=== PATIENT | female | born 1985 | race Caucasian/White ===

== ENCOUNTER → 2016-12-05 | Outpatient (CLI) | payer OTHER ==
[2015-09-25 09:25] VITALS: BP 137/86
[~2016-12-05] MED LIST: OXYC-323 PO
[2016-12-05 17:00] LABS: BASO # 0.1 x10^3/uL (0.0-0.2); BASO % 1 % (0-3); EOS % 2 % (0-3); HEMATOCRIT 38.3 % (36.0-47.0); HEMOGLOBIN 12.2 g/dL (12.0-15.5); LYMPH # 2.7 x10^3/uL (1.0-4.8); LYMPH % 23 % (24-48); MEAN CORPUSCULAR HEMOGLOBIN 27 pg (25-35); MEAN CORPUSCULAR HGB CONC 32 g/dL (31-37); MEAN CORPUSCULAR VOLUME 83 fL (79-100); MONO % 7 % (0-9); NEUT % 67 % (31-73); PLATELET COUNT 275 x10^3/uL (140-400); RED BLOOD COUNT 4.63 x10^6/uL (3.50-5.40); RED CELL DISTRIBUTION WIDTH 14.6 % (11.5-14.5)
[2016-12-05 17:43] LABS: FREE T4 0.95 ng/dL (0.76-1.46)
== END | disposition home or self-care (01) ==
LOC: LAB 16:40
PROVIDERS: ATTEND Obstetrics & Gynecology
DX: N93.9 Abnormal uterine and vaginal bleeding, unspecified (principal)
CPT/HCPCS: 36415; 83036; 84439; 84443; 85027

== ENCOUNTER → 2017-02-06 | Outpatient (CLI) | payer OTHER ==
[2015-09-25 09:25] VITALS: BP 137/86
[2017-02-06 16:24] LABS: BASO # 0.1 x10^3/uL (0.0-0.2); BASO % 1 % (0-3); EOS % 1 % (0-3); HEMATOCRIT 37.5 % (36.0-47.0); HEMOGLOBIN 12.3 g/dL (12.0-15.5); LYMPH % 23 % (24-48); MEAN CORPUSCULAR HEMOGLOBIN 28 pg (25-35); MEAN CORPUSCULAR HGB CONC 33 g/dL (31-37); MEAN CORPUSCULAR VOLUME 84 fL (79-100); MONO % 8 % (0-9); NEUT % 68 % (31-73); PLATELET COUNT 262 x10^3/uL (140-400); RED BLOOD COUNT 4.46 x10^6/uL (3.50-5.40); RED CELL DISTRIBUTION WIDTH 14.8 % (11.5-14.5); WHITE BLOOD COUNT 13.1 x10^3/uL (4.0-11.0)
[2017-02-07 06:17] LABS: RPR REFLEX Non Reactive (Non Reactive)
== END | disposition home or self-care (01) ==
LOC: LAB 15:58
PROVIDERS: ATTEND Obstetrics & Gynecology
DX: Z32.01 Encounter for pregnancy test, result positive (principal)
CPT/HCPCS: 36415; 85027; 86593; 86703; 86762; 86850; 86900; 86901; 87340; 87341

== ENCOUNTER → 2017-04-19 | Outpatient (CLI) | payer OTHER ==
[2015-09-25 09:25] VITALS: BP 137/86
--- NOTE | 2017-04-19 12:09 | KCIC ---
Examination: Obstetric ultrasound second trimester HISTORY: History of routine supervision of COMPARISON: None available FINDINGS: Single living intrauterine identified with heart rate of 144 bpm. movement is seen. Cardiac activity seen. 4 chamber heart seen. breathing could not be identified. 3 vessel CORD seen. CORD insertion visualized. Fluid in the bladder, stomach, kidneys, spine, brain: Seen position is variable. Cervical length 4.9 cm. Amniotic fluid is normal. Biparietal diameter measures 4.3 cm corresponding to 19 weeks and 0 days +/- 12 days. Head circumference measures 16.21 cm corresponding to 19 weeks 0 days +/- 10 days. Abdominal circumference measures 14.07 cm corresponding to 19 weeks and 3 days +/- 14 days. Femur length measures 3.03 cm corresponding to 19 weeks and 3 days +/- 13 days. Cephalic index 78.2 Head circumference to abdominal circumference ratio 1.15 Femur length to biparietal diameter 70.3. Femur length to head circumference 18.7. Femur length abdominal circumference 21.5. LMP 12/10/2016. Clinical age 18 weeks and 4 days with estimated date of delivery 09/16/2017. Ultrasound age is 19 weeks and 2 days with estimated date of delivery by ultrasound 09/11/2017. Estimated weight 288 g +/- 43 g. IMPRESSION: Single living intrauterine with heart rate of 144 bpm. Per this ultrasound , ultrasound age is 19 weeks and 2 days. Electronically signed by: Shakeel Thomas MD (04/19/2017 12:06 PM) [id number]
== END | disposition home or self-care (01) ==
LOC: KCIC US 10:42
PROVIDERS: ATTEND Obstetrics & Gynecology
DX: Z34.82 Encounter for supervision of other normal pregnancy, second trimester (principal); Z3A.19 19 weeks gestation of pregnancy
CPT/HCPCS: 76805

== ENCOUNTER 2017-09-13 20:02 | Inpatient (IN) | payer OTHER ==
[~2017-09-13] VITALS: Ht 175.3 cm; Wt 131.1 kg
[2017-09-13] MEDS ORDERED: BUTORPHANOL 2 MG/ML VIAL. IV PRN ×2 (20:15)
[2017-09-13] MEDS ORDERED: DINOPROSTONE 10 MG SUPP.VAG VG ONE (20:15)
[2017-09-13] MEDS ORDERED: OXYTOCIN 30 UNIT/500 ML PREMIX 500 ML IV PRN ×2 (20:15)
[2017-09-13] MEDS ORDERED: 0.9 % SODIUM CHLORIDE 10 ML DISP.SYRIN. IV PRN (20:15)
[2017-09-13] MEDS ORDERED: TERBUTALINE 1 MG/ML VIAL. SQ PRN (20:15)
[2017-09-13] MEDS ORDERED: LIDOCAINE 1% PF 30 ML VIAL. INJ PRN (20:15)
[2017-09-13] MEDS ORDERED: IBUPROFEN 600 MG TABLET. PO PRN (20:15)
[2017-09-13] MEDS: IV RINGERS,LACTATED 1000ML 1,000 ML IV SCH ×2 (20:37→20:41)
[2017-09-13 20:48] VITALS: BP 131/80
[2017-09-13 20:53] LABS: HEMATOCRIT 35.8 % (36.0-47.0); HEMOGLOBIN 11.5 g/dL (12.0-15.5); RED BLOOD COUNT 4.25 x10^6/uL (3.50-5.40); RED CELL DISTRIBUTION WIDTH 14.5 % (11.5-14.5); WHITE BLOOD COUNT 11.5 x10^3/uL (4.0-11.0)
[2017-09-13 20:55] LABS: BILIRUBIN,URINE NEGATIVE (NEG); GLUCOSE,URINE NEGATIVE (NEG); NITRITE,URINE NEGATIVE (NEG); PH,URINE 6.5; PROTEIN,URINE NEGATIVE (NEG-TRACE); UROBILINOGEN,URINE 0.2 mg/dL (0.2 mg/dL)
[2017-09-13 21:02] LABS: BACTERIA,URINE MANY /HPF (0-FEW); RBC,URINE OCC /HPF (0-2); SQUAMOUS EPITHELIAL CELL,UR MOD /LPF; WBC,URINE 20-40 /HPF (0-4)
[2017-09-14] MEDS: IV RINGERS,LACTATED 1000ML 1,000 ML IV SCH ×3 (06:00→14:05)
[2017-09-14] MEDS ORDERED: ONDANSETRON PF 4 MG/2 ML VIAL. IV PRN ×2 (07:45→11:15)
[2017-09-14] MEDS: fentaNYL PF VIAL 100 MCG/2 ML VIAL IV PRN ×2 (08:45→10:06)
[2017-09-14] MEDS ORDERED: ROPIVacaine 0.2% IN 0.9%NACL PF 40 MG/20 ML DISP.SYRIN. ONE (11:08)
[2017-09-14] MEDS ORDERED: L&D EPIDURAL CASSETTE 100 ML EP ONE (11:09)
[2017-09-14] MEDS ORDERED: IV RINGERS,LACTATED 1000ML 1,000 ML IV SCH (11:09)
[2017-09-14] MEDS ORDERED: ePHEDrine PF IN SALINE 50 MG/5 ML DISP.SYRIN IV PRN (11:15)
[2017-09-14] MEDS ORDERED: fentaNYL PF VIAL 100 MCG/2 ML VIAL EPI PRN (11:15)
[2017-09-14] MEDS ORDERED: NALOXONE 0.4 MG/ML VIAL. IV PRN (11:15)
[2017-09-14] MEDS: L&D EPIDURAL CASSETTE 100 ML EP PRN ×2 (11:37→17:50)
[2017-09-14] MEDS: ROPIVacaine 0.2% IN 0.9%NACL PF 40 MG/20 ML DISP.SYRIN. EPI PRN ×2 (11:38→18:23)
[2017-09-14] MEDS ORDERED: ceFAZolin 2GM PREMIX 2 GM/50 ML BAG IV ONE (12:00)
[2017-09-14] MEDS ORDERED: fentaNYL PF VIAL 100 MCG/2 ML VIAL ONE ×3 (18:24→23:18)
[2017-09-14] MEDS ORDERED: LIDOCAINE 2% PF Vial for OR 5 ML VIAL. ONE ×4 (18:24→23:16)
[2017-09-14] MEDS ORDERED: CITRIC ACID/SODIUM CITRATE 30 ML SOLUTION. ONE (21:47)
[2017-09-14] MEDS ORDERED: FAMOTIDINE 20 MG/2 ML VIAL ONE ×2 (22:14→23:16)
[2017-09-14] MEDS ORDERED: OXYTOCIN 10 UNIT/ML VIAL. ONE ×2 (22:14→23:31)
[2017-09-14] MEDS ORDERED: ONDANSETRON PF 4 MG/2 ML VIAL. ONE (22:14)
[2017-09-14] MEDS ORDERED: MORPHINE PF 5 MG/10 ML VIAL. ONE (23:18)
--- NOTE | 2017-09-14 23:45 | PDOC1 ---
OB - History Hx of Present Care: Good Care Ultrasounds: Normal mid trimester US Obstetrical Complications: None Medical Complications: None Past Family/Social History * Past Medical, Surgical, Family and Obstetric Histories reviewed from chart. Rubella: Immune RPR/VDRL: Negative GBS Status: Negative HBsAG: Negative OB - Chief Complaint & HPI Date of Admission: Date of Admission: Sep 13, 2017 at 20:02 Chief Complaint/History : 1 Para: 0 EGA: 39 Reason for admission: induction of labor Indication for induction: maternal discomfort Admission Nurse Assessment Rev: Yes Problems: OB - Admission Exam Physical Exam Vitals: VS - Last 72 Hours, by Label Date Time Temp Pulse Resp B/P (MAP) Pulse Ox O2 Delivery O2 Flow Rate FiO2 09/14/17 17:50 20 Room Air 09/14/17 10:06 20 Room Air 09/14/17 09:15 20 Room Air 09/14/17 08:45 18 Room Air 09/13/17 20:48 97.6 78 20 131/80 (97) Room Air 97.6 HEENT: Normal Heart: Regular Rate Lungs: Clear Abdomen: Gravid, Non tender, Soft Extremities: Edema Reflexes: Normal Cervical Dilatation: 1cm Effacement: 25% Station: -3 Membranes: Intact Heart Rate: Normal Accelerations: Accelerations Present Decelerations: No decelerations Contractions on Admission: None Text A: 39 wks IUP IOL secondary maternal discomforts P: Admit for IOL cervidil, then pitocin. KIRA LEONG Jr, MD Sep 14, 2017 23:45
--- NOTE | 2017-09-14 23:50 | PDOC4 ---
OB Operative Note PRE OP DIAGNOSIS: Other (FTP) POST OP DIAGNOSIS: Other (Same) OPERATION PERFORMED: L [facility] Surgeon Dr. Olivier Anesthesia: Regional (Epidural) Blood Loss 800 ml Specimen placenta and infant OB Findings: Position (Vertex), Sex (Male), (8/9), Weight (3860 Gram), Fluid (Meconium), Nuchal Cord (x1) Complications none Additional Remarks pt. KIRA Chan Jr, MD Sep 14, 2017 23:50
[2017-09-15] MEDS ORDERED: ZOLPIDEM 5 MG TABLET. PO PRN
[2017-09-15] MEDS ORDERED: SIMETHICONE 80 MG TAB.CHEW PO PRN
[2017-09-15] MEDS ORDERED: 0.9 % SODIUM CHLORIDE 10 ML DISP.SYRIN. IV PRN
[2017-09-15] MEDS ORDERED: MAG HYDROX/ALUMINUM HYD/SIMETH 30 ML ORAL.SUSP PO PRN
[2017-09-15] MEDS ORDERED: ONDANSETRON PF 4 MG/2 ML VIAL. IV PRN
[2017-09-15] MEDS ORDERED: OXYTOCIN 30 UNIT/500 ML PREMIX 500 ML IV PRN
[2017-09-15] MEDS ORDERED: diphenhydrAMINE ORAL ELIXIR 12.5 MG/5 ML ML PO PRN
[2017-09-15] MEDS: KETOROLAC 30 MG/ML INJ. IV PRN ×2 (01:51→09:11)
--- NOTE | 2017-09-15 01:56 | OP ---
DATE OF SURGERY: PREOPERATIVE DIAGNOSES: 1. 39 weeks intrauterine . 2. Failure to progress. POSTOPERATIVE DIAGNOSES: 1. 39 weeks intrauterine . 2. Failure to progress. PROCEDURE: Primary low transverse section. SURGEON: Kira Olivier M.D. ANESTHESIA: Epidural. ESTIMATED BLOOD LOSS: 800 mL. COMPLICATIONS: None. FINDINGS: Viable male , Apgars 8 and 9. Weight 3860 grams. Three-vessel cord placenta delivered manually intact. Nuchal cord x 1. COMPLICATIONS: None. SUMMARY: This 31-year-old 1 at 39 weeks' gestation who presented for induction of labor secondary to maternal discomforts of . The patient was brought Cervidil for cervical ripening. She had spontaneous rupture of membranes. She was then started on Pitocin augmentation. The patient dilated up to 8 cm and then failed to progress any further. The patient also had meconium stained amniotic fluid. She was counseled on risks, benefits and expectations of section and voiced clear understanding to proceed. DESCRIPTION OF PROCEDURE: The patient was taken to surgery suite and placed in dorsal supine position. She was prepped with ChloraPrep and draped in sterile fashion. After adequate anesthesia, a Pfannenstiel skin incision was made with scalpel down to and through the fascia. The fascia was extended laterally using curved Beckett scissors. Superior edge of the fascia was grasped with two Rola clamps and dissected free of the abdominal rectus muscles using blunt dissection along with Bovie cautery. The same process took place inferiorly. The abdominal rectus muscles were dissected at the midline. Peritoneum was grasped with 2 hemostats and entered sharply with Metzenbaum scissors. This incision was extended superiorly as well as inferiorly. The Rory ring retractor was placed. Low transverse hysterotomy incision was made with scalpel down to the . The hysterotomy incision was extended laterally and superiorly digitally. With the aid of fundal pressure, the 's head was delivered in a smooth atraumatic manner. With additional fundal pressure, the infant's shoulders, anterior shoulder and posterior shoulder delivered without any complication. Nuchal cord x 1 was visualized and reduced. The was suctioned with bulb syringe orally and nasally, umbilical cord was clamped twice and cut. A viable male was handed to awaiting nursing staff. Umbilical cord blood was then obtained. Three-vessel cord placenta was delivered manually intact. The uterus was then exteriorized and cleared of clot and debris with a moist lap. The hysterotomy incision was reapproximated using 1-0 Vicryl suture in running locked fashion. An imbricated layer of 1-0 Vicryl suture in a running fashion was performed for better hemostasis. [id number] suture was placed with 1-0 Vicryl suture in the left apex for better hemostasis as well. The uterus palpated firm, fallopian tubes and ovaries appeared normal bilaterally. Posterior cul-de-sac was cleared of clot and debris with moist lap. The uterus was then returned to the abdomen. Pericolic gutters were cleared of clot and debris with a moist lap. The hysterotomy incision was reviewed and was hemostatic. Interceed was placed over the hysterotomy incision in an inverted T fashion. The Rory ring retractor was removed. The peritoneum was reapproximated using 1-0 Vicryl suture in running fashion. Fascia was reapproximated using 0 Vicryl suture in running fashion. Skin was reapproximated using 4-0 Vicryl suture in subcuticular manner. Prevena wound VAC was then placed. The patient tolerated the procedure well and was taken to recovery room in stable condition. Sponge and needle count correct x 3. KIRA OLIVIER MD DR: JEFFRY/patricia JOB#: [id number] / [id number]
[2017-09-15 03:15] VITALS: BP 114/58
[2017-09-15 05:49] VITALS: BP 103/55
[2017-09-15 06:00] LABS: BASO % 0 % (0-3); EOS % 0 % (0-3); HEMOGLOBIN 9.4 g/dL (12.0-15.5); LYMPH # 1.6 x10^3/uL (1.0-4.8); LYMPH % 10 % (24-48); MEAN CORPUSCULAR HEMOGLOBIN 27 pg (25-35); MEAN CORPUSCULAR HGB CONC 32 g/dL (31-37); MEAN CORPUSCULAR VOLUME 84 fL (79-100); MONO % 7 % (0-9); NEUT % 83 % (31-73); PLATELET COUNT 181 x10^3/uL (140-400); RED BLOOD COUNT 3.44 x10^6/uL (3.50-5.40); RED CELL DISTRIBUTION WIDTH 14.7 % (11.5-14.5); WHITE BLOOD COUNT 16.4 x10^3/uL (4.0-11.0)
[2017-09-15] MEDS: IV RINGERS,LACTATED 1000ML 1,000 ML IV SCH (06:27)
[2017-09-15 15:10] VITALS: BP 114/63
[2017-09-15] MEDS: IBUPROFEN 800 MG TABLET. PO PRN (16:14)
[2017-09-15] MEDS: oxyCODONE/APAP 5/325 1 TAB TABLET PO PRN (20:34)
[2017-09-15 23:00] VITALS: BP 118/77
[2017-09-16] MEDS: IBUPROFEN 800 MG TABLET. PO PRN ×3 (02:03→17:50)
[2017-09-16] MEDS: oxyCODONE/APAP 5/325 1 TAB TABLET PO PRN (02:03)
[2017-09-16] MEDS ORDERED: DIPHTH,PERTUSS(ACELL),TET TOX 0.5 ML DISP.SYRIN. VAX IM ONE (07:00)
[2017-09-16] MEDS ORDERED: MEASLES, MUMPS & RUBELLA VACC 0.5 ML VIAL. VAX SQ ONE (07:00)
[2017-09-16] MEDS: FERROUS SULFATE 325 MG TABLET. PO SCH ×2 (09:56→17:50)
[2017-09-16] MEDS: DOCUSATE SODIUM 100 MG CAPSULE. PO PRN ×2 (09:56→17:50)
[2017-09-16 10:00] VITALS: BP 123/84
--- NOTE | 2017-09-16 14:58 | PDOC ---
OB Progress Note Date of Service 09/16/17 Time of Evaluation 1455 Notes Pt. feeling well. Pain controlled. Lochia minimal. Breast feeding without difficulty. Lab Laboratory Tests Test 09/15/17 05:45 White Blood Count 16.4 x10^3/uL (4.0-11.0) Red Blood Count 3.44 x10^6/uL (3.50-5.40) Hemoglobin 9.4 g/dL (12.0-15.5) Hematocrit 29.0 % (36.0-47.0) Mean Corpuscular Volume 84 fL (79-100) Mean Corpuscular Hemoglobin 27 pg (25-35) Mean Corpuscular Hemoglobin Concent 32 g/dL (31-37) Red Cell Distribution Width 14.7 % (11.5-14.5) Platelet Count 181 x10^3/uL (140-400) Neutrophils (%) (Auto) 83 % (31-73) Lymphocytes (%) (Auto) 10 % (24-48) Monocytes (%) (Auto) 7 % (0-9) Eosinophils (%) (Auto) 0 % (0-3) Basophils (%) (Auto) 0 % (0-3) Neutrophils # (Auto) 13.6 x10^3uL (1.8-7.7) Lymphocytes # (Auto) 1.6 x10^3/uL (1.0-4.8) Monocytes # (Auto) 1.2 x10^3/uL (0.0-1.1) Eosinophils # (Auto) 0.0 x10^3/uL (0.0-0.7) Basophils # (Auto) 0.0 x10^3/uL (0.0-0.2) Medications Current Medications Sodium Chloride (Normal Saline Flush) 3 ml QSHIFT PRN IV AFTER MEDS AND BLOOD DRAWS; Start 09/13/17 at 20:15 Ringer's Solution 1,000 ml @ 125 mls/hr Q8H IV Last administered on 09/15/17t 06:27; Start 09/13/17 at 20:03 Butorphanol Tartrate (Stadol) 1 mg PRN Q1HR PRN IV mild to moderate labor pain ; Start 09/13/17 at 20:15; Stop 09/15/17 at 04:03; Status DC Butorphanol Tartrate (Stadol) 2 mg PRN Q1HR PRN IV Severe labor pain; Start at 20:15; Stop 09/15/17 at 04:03; Status DC Fentanyl Citrate (Fentanyl 2ml Vial) 100 mcg PRN Q30MIN PRN IV Severe pain Last administered on 09/14/17 10:06; Start 09/13/17 at 20:15; Stop 09/15/17 at 04:03; Status DC Terbutaline Sulfate (Brethine) 0.25 mg 1X PRN PRN SQ SEE COMMENTS; Start at 20:15; Stop 09/14/17 at 20:14; Status DC Lidocaine HCl 30 ml 1X PRN PRN INJ SEE COMMENTS; Start 09/13/17 at 20:15; Stop 09/15/17 at 04:03; Status DC Oxytocin/Sodium Chloride 500 ml @ 0 mls/hr CONT PRN IV SEE I/O RECORD Last administered on 09/14/17 06:01; Start 09/13/17 at 20:15; Stop 09/15/17 at 04:03 ; Status DC Oxytocin/Sodium Chloride 500 ml @ 0 mls/hr CONT PRN PRN IV Post delivery bleeding; Start 09/13/17 at 20:15 Ibuprofen (Motrin) 600 mg PRN Q6HRS PRN PO PAIN; Start 09/13/17 at 20:15; Stop 09/15/17 at 11:34; Status DC Dinoprostone (Cervidil) 10 mg 1X ONCE VG Last administered on 09/13/17 20:37 ; Start 09/13/17 at 20:15; Stop 09/13/17 at 20:21; Status DC Ondansetron HCl (Zofran) 4 mg PRN Q6HRS PRN IV NAUSEA/VOMITING 1ST CHOICE Last administered on 09/14/17 08:04; Start 09/14/17 at 07:45; Stop 09/15/17 at 04:03 ; Status DC Ropivacaine/ Sodium Chloride 40 mg STK-MED ONCE .ROUTE ; Start 09/14/17 at 11:08 ; Stop 09/15/17 at 04:03; Status DC Ropivacaine/ Fentanyl/NS 100 ml @ As Directed STK-MED ONCE EP ; Start 09/14/17 at 11:09; Stop 09/15/17 at 04:03; Status DC Ringer's Solution 1,000 ml @ 1,000 mls/hr Q1H IV Last administered on 21:40; Start 09/14/17 at 11:09; Stop 09/14/17 at 12:08; Status DC Ephedrine Sulfate (ePHEDrine PF IN SALINE SYRINGE) 10 mg PRN Q2MIN PRN IV IF SBP<90; Start 09/14/17 at 11:15; Stop 09/15/17 at 04:03; Status DC Naloxone HCl (Narcan) 0.4 mg PRN Q1MIN PRN IV SEE COMMENTS; Start 09/14/17 at 11:15; Stop 09/15/17 at 04:03; Status DC Fentanyl Citrate (Fentanyl 2ml Vial) 100 mcg PRN 1X PRN EPI FOR ANESTHESIA Last administered on 09/14/17 11:36; Start 09/14/17 at 11:15; Stop 09/15/17 at 04:03; Status DC Ropivacaine/ Fentanyl/NS 100 ml @ 14 mls/hr CONT PRN EP PAIN Last administered on 09/14/17 17:50; Start 09/14/17 at 11:15; Stop 09/15/17 at 04:03 ; Status DC Ondansetron HCl (Zofran) 4 mg PRN Q6HRS PRN IV NAUSEA/VOMITING; Start 09/14/17 at 11:15; Stop 09/15/17 at 04:03; Status DC Ropivacaine/ Sodium Chloride 40 mg PRN 1X PRN EPI SEE COMMENTS Last administered on 09/14/17 18:23; Start 09/14/17 at 11:15; Stop 09/15/17 at 04:03 ; Status DC Lidocaine HCl (Lidocaine Pf 2% Vial) 5 ml STK-MED ONCE .ROUTE ; Start 09/14/17 at 18:24; Stop 09/15/17 at 04:03; Status DC Fentanyl Citrate (Fentanyl 2ml Vial) 100 mcg STK-MED ONCE .ROUTE ; Start at 18:24; Stop 09/15/17 at 04:03; Status DC Lidocaine HCl (Lidocaine Pf 2% Vial) 5 ml STK-MED ONCE .ROUTE ; Start 09/14/17 at 21:06; Stop 09/15/17 at 04:03; Status DC Cefazolin Sodium/ Dextrose 50 ml @ 100 mls/hr 1X ONCE IV ; Start 09/14/17 at 22:00; Stop 09/15/17 at 04:03; Status DC Citric Acid/ Sodium Citrate (Bicitra) 30 ml STK-MED ONCE .ROUTE ; Start at 21:47; Stop 09/15/17 at 04:03; Status DC Famotidine (Pepcid Vial) 20 mg STK-MED ONCE .ROUTE ; Start 09/14/17 at 22:14; Stop 09/15/17 at 04:03; Status DC Lidocaine HCl (Lidocaine Pf 2% Vial) 5 ml STK-MED ONCE .ROUTE ; Start 09/14/17 at 22:14; Stop 09/15/17 at 04:03; Status DC Ondansetron HCl (Zofran) 4 mg STK-MED ONCE .ROUTE ; Start 09/14/17 at 22:14; Stop 09/15/17 at 04:03; Status DC Oxytocin (Pitocin) 10 unit STK-MED ONCE .ROUTE ; Start 09/14/17 at 22:14; Stop 09/15/17 at 04:03; Status DC Fentanyl Citrate (Fentanyl 2ml Vial) 100 mcg STK-MED ONCE .ROUTE ; Start at 22:41; Stop 09/15/17 at 04:03; Status DC Lidocaine HCl (Lidocaine Pf 2% Vial) 5 ml STK-MED ONCE .ROUTE ; Start 09/14/17 at 23:16; Stop 09/15/17 at 04:03; Status DC Famotidine (Pepcid Vial) 20 mg STK-MED ONCE .ROUTE ; Start 09/14/17 at 23:16; Stop 09/15/17 at 04:03; Status DC Morphine Sulfate (Morphine Preservative Free) 5 mg STK-MED ONCE .ROUTE ; Start 09/14/17 at 23:18; Stop 09/15/17 at 04:03; Status DC Fentanyl Citrate (Fentanyl 2ml Vial) 100 mcg STK-MED ONCE .ROUTE ; Start at 23:18; Stop 09/14/17 at 23:19; Status DC Oxytocin (Pitocin) 10 unit STK-MED ONCE .ROUTE ; Start 09/14/17 at 23:31; Stop 09/15/17 at 04:03; Status DC Sodium Chloride (Normal Saline Flush) 3 ml QSHIFT PRN IV AFTER MEDS AND BLOOD DRAWS; Start 09/15/17 at 00:00; Stop 09/15/17 at 04:03; Status DC Oxytocin/Sodium Chloride 500 ml @ 125 mls/hr CONT PRN IV EXCESSIVE POST- BLEEDING; Start 09/15/17 at 00:00; Stop 09/15/17 at 04:03; Status DC Ibuprofen (Motrin) 800 mg PRN Q8HRS PRN PO INFLAMMATION Last administered on 09:56; Start 09/15/17 at 00:00 Ondansetron HCl (Zofran) 4 mg PRN Q6HRS PRN IV NAUSEA/VOMITING; Start 09/15/17 at 00:00 Docusate Sodium (Colace) 100 mg PRN BID PRN PO CONSTIPATION Last administered on 09/16/17 09:56; Start 09/15/17 at 00:00 Al Hydroxide/Mg Hydroxide (Mylanta Plus Xs) 30 ml PRN Q4HRS PRN PO HEARTBURN / GAS; Start 09/15/17 at 00:00; Stop 09/15/17 at 04:03; Status DC Simethicone (Gas-X) 80 mg PRN AFTMEALHC PRN PO GAS / BLOATING; Start 09/15/17 at 00:00 Diphenhydramine HCl (Benadryl Oral Elixir) 12.5 mg PRN Q6HRS PRN PO ITCHING; Start 09/15/17 at 00:00 Ferrous Sulfate (Feosol) 325 mg BIDWMEALS PO Last administered on 09/16/17 09: 56; Start 09/15/17 at 08:00 Zolpidem Tartrate (Ambien) 5 mg PRN QHS PRN PO INSOMNIA, MAY REPEAT X1; Start 09/15/17 at 00:00 Oxycodone/ Acetaminophen (Percocet 5/325) 2 tab PRN Q4HRS PRN PO MODERATE PAIN , SEVERE PAIN Last administered on 09/16/17 02:03; Start 09/15/17 at 00:00 Ketorolac Tromethamine (Toradol) 30 mg PRN Q6HRS PRN IV MODERATE PAIN Last administered on 12/8/17at 09:11; Start 09/15/17 at 00:00; Stop 09/19/17 at 23: 59 Cefazolin Sodium/ Dextrose (Ancef 2gm Premix) 2 gm STK-MED ONCE IV ; Start 09/14 at 12:00; Stop 09/15/17 at 08:23; Status DC Measles/Mumps/ Rubella Vaccine Live (M-M-R Ii Vaccine With Diluent) 0.5 ml ONCE ONCE VAX SQ ; Start 09/16/17 at 07:00; Stop 09/16/17 at 07:01; Status DC Diphtheria/ Tetanus/Acell Pertussis (Boostrix) 0.5 ml ONCE ONCE VAX IM ; Start 09/16/17 at 07:00; Stop 09/16/17 at 07:01; Status DC Active Scripts Active Reported Percocet 5-325 Mg Tablet (Oxycodone/Acetaminophen) 1 Each Tablet 1 Tab PO Q4HRS W/A PRN Exam Abd: soft, non tender, fundus firm Wound vac in place and dry. Assessment POD#2 s/p c/s Plan of Care: Continue current Tx, Mgmt KIRA LEONG Jr, MD Sep 16, 2017 14:57
[2017-09-16 17:59] VITALS: BP 118/79
[2017-09-16 23:03] VITALS: BP 135/75
[2017-09-17] MEDS: oxyCODONE/APAP 5/325 1 TAB TABLET PO PRN (00:10)
[2017-09-17 06:12] VITALS: BP 109/75
[2017-09-17] MEDS: DOCUSATE SODIUM 100 MG CAPSULE. PO PRN (08:31)
[2017-09-17] MEDS: FERROUS SULFATE 325 MG TABLET. PO SCH (08:31)
[2017-09-17] MEDS: IBUPROFEN 800 MG TABLET. PO PRN (08:32)
--- NOTE | 2017-09-17 12:12 | PDOC ---
OB Progress Note Date of Service 09/17/17 Time of Evaluation 1210 Notes Pt. feeling well. No complaints. Medications Current Medications Sodium Chloride (Normal Saline Flush) 3 ml QSHIFT PRN IV AFTER MEDS AND BLOOD DRAWS; Start 09/13/17 at 20:15 Ringer's Solution 1,000 ml @ 125 mls/hr Q8H IV Last administered on 09/15/17 06:27; Start 09/13/17 at 20:03 Butorphanol Tartrate (Stadol) 1 mg PRN Q1HR PRN IV mild to moderate labor pain ; Start 09/13/17 at 20:15; Stop 09/15/17 at 04:03; Status DC Butorphanol Tartrate (Stadol) 2 mg PRN Q1HR PRN IV Severe labor pain; Start at 20:15; Stop 09/15/17 at 04:03; Status DC Fentanyl Citrate (Fentanyl 2ml Vial) 100 mcg PRN Q30MIN PRN IV Severe pain Last administered on 09/14/17 10:06; Start 09/13/17 at 20:15; Stop 09/15/17 at 04:03; Status DC Terbutaline Sulfate (Brethine) 0.25 mg 1X PRN PRN SQ SEE COMMENTS; Start at 20:15; Stop 09/14/17 at 20:14; Status DC Lidocaine HCl 30 ml 1X PRN PRN INJ SEE COMMENTS; Start 09/13/17 at 20:15; Stop 09/15/17 at 04:03; Status DC Oxytocin/Sodium Chloride 500 ml @ 0 mls/hr CONT PRN IV SEE I/O RECORD Last administered on 09/14/17 06:01; Start 09/13/17 at 20:15; Stop 09/15/17 at 04:03 ; Status DC Oxytocin/Sodium Chloride 500 ml @ 0 mls/hr CONT PRN PRN IV Post delivery bleeding; Start 09/13/17 at 20:15 Ibuprofen (Motrin) 600 mg PRN Q6HRS PRN PO PAIN; Start 09/13/17 at 20:15; Stop 09/15/17 at 11:34; Status DC Dinoprostone (Cervidil) 10 mg 1X ONCE VG Last administered on 09/13/17 20:37 ; Start 09/13/17 at 20:15; Stop 09/13/17 at 20:21; Status DC Ondansetron HCl (Zofran) 4 mg PRN Q6HRS PRN IV NAUSEA/VOMITING 1ST CHOICE Last administered on 09/14/17 08:04; Start 09/14/17 at 07:45; Stop 09/15/17 at 04:03 ; Status DC Ropivacaine/ Sodium Chloride 40 mg STK-MED ONCE .ROUTE ; Start 09/14/17 at 11:08 ; Stop 09/15/17 at 04:03; Status DC Ropivacaine/ Fentanyl/NS 100 ml @ As Directed STK-MED ONCE EP ; Start 09/14/17 at 11:09; Stop 09/15/17 at 04:03; Status DC Ringer's Solution 1,000 ml @ 1,000 mls/hr Q1H IV Last administered on 21:40; Start 09/14/17 at 11:09; Stop 09/14/17 at 12:08; Status DC Ephedrine Sulfate (ePHEDrine PF IN SALINE SYRINGE) 10 mg PRN Q2MIN PRN IV IF SBP<90; Start 09/14/17 at 11:15; Stop 09/15/17 at 04:03; Status DC Naloxone HCl (Narcan) 0.4 mg PRN Q1MIN PRN IV SEE COMMENTS; Start 09/14/17 at 11:15; Stop 09/15/17 at 04:03; Status DC Fentanyl Citrate (Fentanyl 2ml Vial) 100 mcg PRN 1X PRN EPI FOR ANESTHESIA Last administered on 09/14/17 11:36; Start 09/14/17 at 11:15; Stop 09/15/17 at 04:03; Status DC Ropivacaine/ Fentanyl/NS 100 ml @ 14 mls/hr CONT PRN EP PAIN Last administered on 09/14/17 17:50; Start 09/14/17 at 11:15; Stop 09/15/17 at 04:03 ; Status DC Ondansetron HCl (Zofran) 4 mg PRN Q6HRS PRN IV NAUSEA/VOMITING; Start 09/14/17 at 11:15; Stop 09/15/17 at 04:03; Status DC Ropivacaine/ Sodium Chloride 40 mg PRN 1X PRN EPI SEE COMMENTS Last administered on 09/14/17 18:23; Start 09/14/17 at 11:15; Stop 09/15/17 at 04:03 ; Status DC Lidocaine HCl (Lidocaine Pf 2% Vial) 5 ml STK-MED ONCE .ROUTE ; Start 09/14/17 at 18:24; Stop 09/15/17 at 04:03; Status DC Fentanyl Citrate (Fentanyl 2ml Vial) 100 mcg STK-MED ONCE .ROUTE ; Start at 18:24; Stop 09/15/17 at 04:03; Status DC Lidocaine HCl (Lidocaine Pf 2% Vial) 5 ml STK-MED ONCE .ROUTE ; Start 09/14/17 at 21:06; Stop 09/15/17 at 04:03; Status DC Cefazolin Sodium/ Dextrose 50 ml @ 100 mls/hr 1X ONCE IV ; Start 09/14/17 at 22:00; Stop 09/15/17 at 04:03; Status DC Citric Acid/ Sodium Citrate (Bicitra) 30 ml STK-MED ONCE .ROUTE ; Start at 21:47; Stop 09/15/17 at 04:03; Status DC Famotidine (Pepcid Vial) 20 mg STK-MED ONCE .ROUTE ; Start 09/14/17 at 22:14; Stop 09/15/17 at 04:03; Status DC Lidocaine HCl (Lidocaine Pf 2% Vial) 5 ml STK-MED ONCE .ROUTE ; Start 09/14/17 at 22:14; Stop 09/15/17 at 04:03; Status DC Ondansetron HCl (Zofran) 4 mg STK-MED ONCE .ROUTE ; Start 09/14/17 at 22:14; Stop 09/15/17 at 04:03; Status DC Oxytocin (Pitocin) 10 unit STK-MED ONCE .ROUTE ; Start 09/14/17 at 22:14; Stop 09/15/17 at 04:03; Status DC Fentanyl Citrate (Fentanyl 2ml Vial) 100 mcg STK-MED ONCE .ROUTE ; Start at 22:41; Stop 09/15/17 at 04:03; Status DC Lidocaine HCl (Lidocaine Pf 2% Vial) 5 ml STK-MED ONCE .ROUTE ; Start 09/14/17 at 23:16; Stop 09/15/17 at 04:03; Status DC Famotidine (Pepcid Vial) 20 mg STK-MED ONCE .ROUTE ; Start 09/14/17 at 23:16; Stop 09/15/17 at 04:03; Status DC Morphine Sulfate (Morphine Preservative Free) 5 mg STK-MED ONCE .ROUTE ; Start 09/14/17 at 23:18; Stop 09/15/17 at 04:03; Status DC Fentanyl Citrate (Fentanyl 2ml Vial) 100 mcg STK-MED ONCE .ROUTE ; Start at 23:18; Stop 09/14/17 at 23:19; Status DC Oxytocin (Pitocin) 10 unit STK-MED ONCE .ROUTE ; Start 09/14/17 at 23:31; Stop 09/15/17 at 04:03; Status DC Sodium Chloride (Normal Saline Flush) 3 ml QSHIFT PRN IV AFTER MEDS AND BLOOD DRAWS; Start 09/15/17 at 00:00; Stop 09/15/17 at 04:03; Status DC Oxytocin/Sodium Chloride 500 ml @ 125 mls/hr CONT PRN IV EXCESSIVE POST- BLEEDING; Start 09/15/17 at 00:00; Stop 09/15/17 at 04:03; Status DC Ibuprofen (Motrin) 800 mg PRN Q8HRS PRN PO INFLAMMATION Last administered on 08:32; Start 09/15/17 at 00:00 Ondansetron HCl (Zofran) 4 mg PRN Q6HRS PRN IV NAUSEA/VOMITING; Start 09/15/17 at 00:00 Docusate Sodium (Colace) 100 mg PRN BID PRN PO CONSTIPATION Last administered on 09/17/17 08:31; Start 09/15/17 at 00:00 Al Hydroxide/Mg Hydroxide (Mylanta Plus Xs) 30 ml PRN Q4HRS PRN PO HEARTBURN / GAS; Start 09/15/17 at 00:00; Stop 09/15/17 at 04:03; Status DC Simethicone (Gas-X) 80 mg PRN AFTMEALHC PRN PO GAS / BLOATING; Start 09/15/17 at 00:00 Diphenhydramine HCl (Benadryl Oral Elixir) 12.5 mg PRN Q6HRS PRN PO ITCHING; Start 09/15/17 at 00:00 Ferrous Sulfate (Feosol) 325 mg BIDWMEALS PO Last administered on 09/17/17 08 :31; Start 09/15/17 at 08:00 Zolpidem Tartrate (Ambien) 5 mg PRN QHS PRN PO INSOMNIA, MAY REPEAT X1; Start 09/15/17 at 00:00 Oxycodone/ Acetaminophen (Percocet 5/325) 2 tab PRN Q4HRS PRN PO MODERATE PAIN , SEVERE PAIN Last administered on 09/17/17 00:10; Start 09/15/17 at 00:00 Ketorolac Tromethamine (Toradol) 30 mg PRN Q6HRS PRN IV MODERATE PAIN Last administered on 09/15/17 09:11; Start 09/15/17 at 00:00; Stop 09/19/17 at 23: 59 Cefazolin Sodium/ Dextrose (Ancef 2gm Premix) 2 gm STK-MED ONCE IV ; Start 09/14 at 12:00; Stop 09/15/17 at 08:23; Status DC Measles/Mumps/ Rubella Vaccine Live (M-M-R Ii Vaccine With Diluent) 0.5 ml ONCE ONCE VAX SQ ; Start 09/16/17 at 07:00; Stop 09/16/17 at 07:01; Status DC Diphtheria/ Tetanus/Acell Pertussis (Boostrix) 0.5 ml ONCE ONCE VAX IM ; Start 09/16/17 at 07:00; Stop 09/16/17 at 07:01; Status DC Active Scripts Active Reported Percocet 5-325 Mg Tablet (Oxycodone/Acetaminophen) 1 Each Tablet 1 Tab PO Q4HRS W/A PRN Exam Abd: soft, non tender, fundus firm Wound vac in place and dry. Assessment POD#3 s/p c/s Plan of Care: See new orders (D/c home.) KIRA LEONG Jr, MD Sep 17, 2017 12:12
--- NOTE | 2017-09-17 12:15 | DISCH ---
DISCHARGE INSTRUCTIONS Condition on Discharge Condition on Discharge: Stable Activity After Discharge Activity Instructions for Disc: Activity as tolerated Lifting Instructions after Dis: No heavy lifting Driving Instructions after Dis: No driving for 2 weeks Diet after Discharge Diet after Discharge: Regular Contacting the DRMissael after DC Call your doctor for: Concerns you may have Follow-Up Follow up with: Dr. Olivier in 1 week. KIRA OLIVIER Jr, MD Sep 17, 2017 12:15
[2017-09-17] MEDS ORDERED: DOCU-109 PO (12:16)
[2017-09-17] MEDS ORDERED: IBUP-1060 PO (12:16)
[2017-09-17] MEDS ORDERED: OXYC-323 PO (12:16)
--- NOTE | 2017-09-18 14:47 | PATHOLOGY ---
PATHOLOGY REPORT * * * * * * * * FINAL DIAGNOSIS: 536 gram term placenta of an estimated 39-40 weeks gestation with attached membranes and umbilical cord: - Intervillous thrombus. - Focal intervillous fibrin deposition with villous entrapment and ischemic degeneration. COMMENT: There is no evidence of an acute chorioamnionitis. (JPM:[email or web address]; 09/18/2017) REPORT ELECTRONICALLY SIGNED BY: Ferny Rico M.D. DATE/TIME: 09/18/2017 14:47 * * * * * * * * GROSS PATHOLOGY: Received in formalin labeled "Aleida Phillips placenta" is a cortes placenta with attached membranes and umbilical cord. The placental disc measures 18.8 x 18.6 x 2.3 cm. The membranes are transparent and thin with the site of membrane rupture 7.5 cm from the placental margin. The membranes have marginal insertion. The umbilical cord measures 44.8 cm in length, 1.1 cm in diameter, contains three vessels and inserts eccentrically, 6.2 cm from the closest placental margin. There are no true knots in the umbilical cord. The trimmed placental weight is 536 grams. The surface is blue-kennedy with minimal subchorionic fibrin. Amnion nodosum is not present. Cysts are not present. The maternal surface has intact cotyledons and no basal hemorrhage. Sectioning through the placental disc reveals diffuse moderate calcification and four possible infarcts ranging from 1.0-3.0 cm in greatest dimension. Sections are submitted as follows: A1 proximal and distal umbilical cord A2 membranes, rolled A3 product support representative peripheral placenta A4 product support representative central placenta ([facility] [place]; 09/17/2017) INITIAL CPT CODE(S): A; 71617 Professional services performed by [facility] at [address] [address] Technical services performed by [facility] at [address] [place] [address], [address], [place] [address]. SPECIMEN(S) RECEIVED: A.Placenta and cord CLINICAL HISTORY: IUP, for failure to progress, 8lb 8oz male @ 2302 on 09/14/17, apgars 8-9, EDC 09/16/17, nuchal cord around neck x1-loose, PATIENT: ALEIDA PHILLIPS /AGE: 110/28/1985 (Age: 31) PATIENT #: [id number] ALT CASE #: SPECIMEN COLLECTION DATE: 09/14/2017 SPECIMEN RECEIVED DATE: 09/15/2017 [facility] - [address] [place] [address] - PHONE: [phone] * * * END OF REPORT * * *
== END 2017-09-17 16:00 | disposition home or self-care (01) | DRG 766 ==
LOC: 3 SO LND 20:02
PROVIDERS: ADMIT Obstetrics & Gynecology; ATTEND Obstetrics & Gynecology
PROC: 10D00Z1 Extraction of Products of Conception, Low, Open Approach (ICD-10-PCS; principal; 2017-09-14)
DX: O62.2 Other uterine inertia (principal); O69.81X0 Labor and delivery complicated by cord around neck, without compression, not applicable or unspecified; O77.0 Labor and delivery complicated by meconium in amniotic fluid; Z37.0 Single live birth; Z3A.39 39 weeks gestation of pregnancy
CPT/HCPCS: 36415; 81001; 85025; 85027; 86592; 86593; 86850; 86900; 86901; 87086; 90707; 90715; J0690; J1885; J2270; J2405; J2590; J2795; J3010; J7120; S0028; J2001

== ENCOUNTER → 2018-01-11 | Outpatient (CLI) | payer OTHER ==
[2018-01-11 12:00] LABS: ADD MAN DIFF? NO
[2018-01-11 12:09] LABS: BASO # 0.1 x10^3/uL (0.0-0.2); BASO % 1 % (0-3); EOS # 0.2 x10^3/uL (0.0-0.7); EOS % 2 % (0-3); HEMATOCRIT 37.6 % (36.0-47.0); LYMPH # 2.2 x10^3/uL (1.0-4.8); LYMPH % 27 % (24-48); MEAN CORPUSCULAR HEMOGLOBIN 25 pg (25-35); MEAN CORPUSCULAR HGB CONC 32 g/dL (31-37); MEAN CORPUSCULAR VOLUME 77 fL (79-100); MONO # 0.6 x10^3/uL (0.0-1.1); MONO % 7 % (0-9); NEUT # 5.3 x10^3uL (1.8-7.7); NEUT % 63 % (31-73); PLATELET COUNT 267 x10^3/uL (140-400); RED BLOOD COUNT 4.87 x10^6/uL (3.50-5.40); RED CELL DISTRIBUTION WIDTH 17.3 % (11.5-14.5); WHITE BLOOD COUNT 8.3 x10^3/uL (4.0-11.0)
[2018-01-11 12:24] LABS: % SAT IRON 15 % (15-34); IRON,SERUM 50 ug/dL (50-170)
[2018-01-11 12:31] LABS: THYROID STIM HORMONE (TSH) 1.004 uIU/mL (0.358-3.74)
[2018-01-11 12:31] LABS: FREE T4 0.91 ng/dL (0.76-1.46)
[2018-01-11 12:37] LABS: FERRITIN 49 ng/mL (8-252)
== END | disposition home or self-care (01) ==
LOC: LAB 11:46
DX: L65.9 Nonscarring hair loss, unspecified (principal); R53.83 Other fatigue
CPT/HCPCS: 36415; 82728; 83540; 83550; 84439; 84443; 85025

== ENCOUNTER → 2018-02-20 | Outpatient (CLI) | payer OTHER ==
[2018-02-20 15:10] LABS: ADD MAN DIFF? NO
[2018-02-20 15:38] LABS: BASO # 0.1 x10^3/uL (0.0-0.2); BASO % 1 % (0-3); EOS # 0.3 x10^3/uL (0.0-0.7); EOS % 3 % (0-3); HEMATOCRIT 35.3 % (36.0-47.0); HEMOGLOBIN 11.7 g/dL (12.0-15.5); LYMPH # 2.3 x10^3/uL (1.0-4.8); LYMPH % 28 % (24-48); MEAN CORPUSCULAR HEMOGLOBIN 26 pg (25-35); MEAN CORPUSCULAR HGB CONC 33 g/dL (31-37); MEAN CORPUSCULAR VOLUME 78 fL (79-100); MONO # 0.6 x10^3/uL (0.0-1.1); MONO % 7 % (0-9); NEUT % 61 % (31-73); PLATELET COUNT 255 x10^3/uL (140-400); RED BLOOD COUNT 4.55 x10^6/uL (3.50-5.40); RED CELL DISTRIBUTION WIDTH 17.7 % (11.5-14.5); WHITE BLOOD COUNT 8.1 x10^3/uL (4.0-11.0)
[2018-02-20 16:09] LABS: TOTAL PROTEIN 7.9 g/dL (6.4-8.2)
[2018-02-20 16:09] LABS: ALBUMIN 3.5 g/dL (3.4-5.0)
[2018-02-20 16:34] LABS: VITAMIN-B12 315 pg/mL (247-911)
[2018-02-20 16:34] LABS: FOLATE 16.13 ng/ml (3.2-20.0)
[2018-02-21 00:12] LABS: DHEA SO4 120.8 ug/dL (84.8-378.0)
[2018-02-22 11:24] LABS: SELENIUM 159 ug/L (79-326)
== END | disposition home or self-care (01) ==
LOC: LAB 14:54
DX: L98.8 Other specified disorders of the skin and subcutaneous tissue (principal)
CPT/HCPCS: 36415; 82040; 82306; 82607; 82627; 82746; 84155; 84402; 84403; 85025; 86038

== ENCOUNTER → 2019-02-27 | Outpatient (CLI) | payer OTHER ==
[~2019-02-27] MED LIST changes: +DOCU-109 PO; +IBUP-1060 PO; -OXYC-323 PO; +OXYC1TAB15 PO
== END | disposition home or self-care (01) ==
LOC: LAB 11:47
PROVIDERS: ATTEND Obstetrics & Gynecology
DX: O09.91 Supervision of high risk pregnancy, unspecified, first trimester (principal); Z3A.01 Less than 8 weeks gestation of pregnancy
CPT/HCPCS: 36415; 84144; 84702

== ENCOUNTER → 2019-03-06 | Outpatient (CLI) | payer OTHER ==
--- NOTE | 2019-03-07 08:50 | KCIC ---
Obstetrical ultrasound, 03/06/2019: HISTORY: , check viability Transabdominal and transvaginal scans were obtained. The uterus is enlarged and contains a single gestational sac. The gestational sac contains a pole demonstrating a crown-rump length of 13 mm compatible with a gestational age of 7-8 weeks. This yields a sonographic EDC of 10/19/1999. activity and heart motion are evident. The heart rate is 163 bpm. There is no evidence of subchorionic hemorrhage. The maternal ovaries were not visualized. No significant free fluid is evident in the pelvis. IMPRESSION: Single viable intrauterine fetus of 7-8 weeks gestational age. Electronically signed by: Elan Nunes MD (03/07/2019 8:48 AM) [facility]
== END | disposition home or self-care (01) ==
LOC: KCIC US 15:09
PROVIDERS: ATTEND Obstetrics & Gynecology
DX: O20.0 Threatened abortion (principal); Z3A.01 Less than 8 weeks gestation of pregnancy
CPT/HCPCS: 76801

== ENCOUNTER → 2019-05-21 | Outpatient (CLI) | payer OTHER ==
--- NOTE | 2019-05-22 02:22 | KCIC ---
OB ultrasound dated 05/21/2019: No comparison available. Clinical Indication: Size and dates. Findings: There is a single intrauterine gestation in breech presentation. The placenta is posterior in location without evidence of placental previa. The amount of amniotic fluid appears appropriate. TYRONE equals 10.8 cm Biometrical data is as follows: BPD = 4.2 cm for 18 weeks 5 days. HC = 16.5 cm for 19 weeks to days. AC = 13.9 cmfor 19 weeks to days. FL = 2.9 cm for 18 weeks 6 days. Overall, the estimated sonographic gestational age is 19 weeks 0 days for an estimated date of delivery of 10/15/2019. This is approximate 4 days off of the dates adjustment by the last menstrual period. estimated weight is 274 g. survey is limited due to body habitus. The heart and kidneys are not well visualized. The brain is also not well seen. Cervical length could not be accurately estimated. bladder and stomach are visualized. Visualized portions of the spine unremarkable. There is a three-vessel cord. heart rate 140 bpm. Impression: 1. Single viable intrauterine gestation with estimated sonographic gestational age of 19 weeks 0 days. 2. Limited survey. The heart and kidneys are not well visualized. The brain is also not well seen. Electronically signed by: Mark Gallardo MD (05/22/2019 2:19 AM) [id number]
== END | disposition home or self-care (01) ==
LOC: KCIC US 09:51
PROVIDERS: ATTEND Obstetrics & Gynecology
DX: O32.1XX0 Maternal care for breech presentation, not applicable or unspecified (principal); O26.842 Uterine size-date discrepancy, second trimester; Z3A.19 19 weeks gestation of pregnancy
CPT/HCPCS: 76805

== ENCOUNTER → 2019-07-15 | Outpatient (CLI) | payer OTHER ==
--- NOTE | 2019-07-15 15:47 | KCIC ---
EXAM: Obstetrics sonogram. HISTORY: Follow-up for limited anatomy scan. TECHNIQUE: Sonographic imaging of a gravid uterus was performed. COMPARISON: 05/21/2019. FINDINGS: There is a single intrauterine fetus in breech presentation with a heart rate of 133 bpm. The cervix is closed and measures 6.4 cm in length. The stomach, kidneys, and bladder are unremarkable. There is a four-chamber heart with normal appearing outflow tracts. The lateral ventricles are not seen. The brain is otherwise unremarkable. The amniotic fluid index is normal at 20.1 cm. The biparietal diameter is 6.94 cm, corresponding with 27 weeks and 6 days. The heads are currently is 26.36 cm, corresponding with 28 weeks and 5 days. The abdominal circumference is 24.30 cm, corresponding with 20 weeks and 4 days. The femoral length is 5.30 cm, corresponding with 28 weeks and 1 day. The estimated gestational age patient combined ultrasound measurements is 28 weeks and 2 days and the estimated weight is 1221 g. This corresponds with the 79th percentile for an estimated gestational age of 26 weeks and 2 days based on LMP. The RICARDO based on ultrasound measurements is 10/05/2019. IMPRESSION: 1. Single intrauterine fetus in breech presentation with an estimated gestational age based on ultrasound measurements of 28 weeks and 2 days. This is 2 weeks greater than the estimated gestational age based on LMP of 26 weeks and 2 days. 2. Persistent suboptimal evaluation of the intracranial ventricles. This is due to maternal body habitus. The heart and kidneys are unremarkable on this exam. Electronically signed by: Arlyn Jo MD (07/15/2019 3:43 PM) [facility]
== END | disposition home or self-care (01) ==
LOC: KCIC US 10:53
PROVIDERS: ATTEND Obstetrics & Gynecology
DX: O32.1XX0 Maternal care for breech presentation, not applicable or unspecified (principal); O26.843 Uterine size-date discrepancy, third trimester; Z3A.28 28 weeks gestation of pregnancy
CPT/HCPCS: 76815

== ENCOUNTER → 2019-07-30 | Outpatient (CLI) | payer OTHER ==
--- NOTE | 2019-07-30 16:25 | RAD ---
MR#: [id number] Date of Study: 07/30/2019 Ordering Physician: TOSHIA LUNA, Referring Physician: TOSHIA LUNA, Tech: Candido Morel MBA, RDMS, RVT, RDCS, RTR APPROVED REPORT Bilateral Lower Extremity Venous Study for DVT Patient Location: OUT-PATIENT Indications Lower Extremity Edema: Bilateral s/p b/l gsv ablations approx 7 years ago Vein Imaging (Right) CFV (R): Compressible SFJ (R): Compressible FEM (R): Compressible POP (R): Compressible DFV (R): Compressible PTV (R): Spontaneous GSV (R): Spontaneous Peroneals (R): Spontaneous Vein Imaging (Left) CFV (L): Compressible SFJ (L): Compressible FEM (L): Compressible POP (L): Compressible DFV (L): Compressible PTV (L): Spontaneous GSV (L): Absent Flow Peroneals (L): Spontaneous Doppler Evaluation (Right) CFV (R): Spontaneous POP (R):Spontaneous Doppler Evaluation (Left) CFV (L):Spontaneous POP (L):Spontaneous Findings Technically difficult images due to body habitus. The bilateral saphenofemoral junctions, common femoral veins, superficial femoral veins appear to be compressible. The mid to distal superficial femoral vein and popliteal veins are not well visualized. There is spontaneous flow noted in the deep veins from the common femoral vein to the below-knee ves sels. Spectral waveforms are grossly unremarkable. The left greater saphenous vein has been previously ablated. The right great saphenous vein shows flow that suggest recanalization of the greater saphenous vein. Critical Notification Critical Value: No <Conclusion> 1. No obvious evidence of DVT in the bilateral lower 70s 2. Previously ablated left great saphenous vein 3. Probable recanalization of the previously ablated right greater saphenous vein. Correlate with his tory. Signed by : Dexter Gann, Electronically Approved : 07/30/2019 16:24:58
== END | disposition home or self-care (01) ==
LOC: US 15:40
PROVIDERS: ATTEND Internal Medicine Cardiovascular Disease
DX: R60.0 Localized edema (principal); M79.89 Other specified soft tissue disorders
CPT/HCPCS: 93970

== ENCOUNTER 2019-10-08 17:45 | Inpatient (IN) | payer OTHER ==
[~2019-10-08] VITALS: Ht 175.3 cm; Wt 134.7 kg
[2019-10-08 18:15] VITALS: BP 133/93
[2019-10-08] MEDS ORDERED: IV RINGERS,LACTATED 1000ML 1,000 ML IV SCH (18:16)
[2019-10-08] MEDS ORDERED: ceFAZolin SODIUM 3 GM in IV DEXTROSE 5% 100ML 100 ML IV ONE (18:30)
[2019-10-08] MEDS ORDERED: CITRIC ACID/SODIUM CITRATE 30 ML SOLUTION. PO STA (18:31)
[2019-10-08 18:42] LABS: BILIRUBIN,URINE NEGATIVE (NEG); CLARITY,URINE CLEAR; COLOR,URINE YELLOW; NITRITE,URINE NEGATIVE (NEG); PROTEIN,URINE NEGATIVE (NEG-TRACE); UROBILINOGEN,URINE 0.2 mg/dL (0.2 mg/dL)
[2019-10-08 18:43] LABS: HEMATOCRIT 35.7 % (36.0-47.0); RED BLOOD COUNT 4.14 x10^6/uL (3.50-5.40); RED CELL DISTRIBUTION WIDTH 15.6 % (11.5-14.5); WHITE BLOOD COUNT 7.8 x10^3/uL (4.0-11.0)
[2019-10-08] MEDS ORDERED: AZITHROMYCIN 500 MG in IV NORMAL SALINE 250ML 250 ML IV ONE (18:45)
[2019-10-08] MEDS ORDERED: OXYTOCIN 10 UNIT/ML VIAL. ONE ×3 (18:55→19:30)
[2019-10-08] MEDS ORDERED: PHENYLEPHRINE in 0.9% NACL PF 1 MG/10 ML SYRINGE. IV ONE (18:56)
[2019-10-08] MEDS ORDERED: fentaNYL PF VIAL 100 MCG/2 ML VIAL ONE (18:56)
[2019-10-08] MEDS ORDERED: MORPHINE PF 10 MG/10 ML AMPUL. ONE (18:58)
[2019-10-08] MEDS ORDERED: diphenhydrAMINE ORAL ELIXIR 12.5 MG/5 ML ML PO PRN (19:00)
[2019-10-08] MEDS ORDERED: 0.9 % SODIUM CHLORIDE 10 ML DISP.SYRIN. IV PRN (19:00)
[2019-10-08] MEDS ORDERED: SIMETHICONE 80 MG TAB.CHEW PO PRN (19:00)
[2019-10-08] MEDS ORDERED: MAG HYDROX/ALUMINUM HYD/SIMETH 30 ML ORAL.SUSP PO PRN (19:00)
[2019-10-08] MEDS ORDERED: OXYTOCIN 30 UNIT/500 ML PREMIX 500 ML IV PRN (19:00)
[2019-10-08] MEDS ORDERED: ONDANSETRON PF 4 MG/2 ML VIAL. IV PRN (19:00)
[2019-10-08] MEDS ORDERED: ZOLPIDEM 5 MG TABLET. PO PRN (19:00)
--- NOTE | 2019-10-08 19:00 | PDOC1 ---
OB - History Hx of Present Care: Good Care Ultrasounds: Normal mid trimester US Obstetrical Complications: None Medical Complications: None Past Family/Social History * Past Medical, Surgical, Family and Obstetric Histories reviewed from chart. Rubella: Immune RPR/VDRL: Negative GBS Status: Positive HBsAG: Negative OB - Chief Complaint & HPI Date of Admission: Date of Admission: Oct 08, 2019 at 17:45 Chief Complaint/History : 2 Para: 1 Reason for admission: section, rupture of membranes Indication for : desires repeat Admission Nurse Assessment Rev: Yes OB - Admission Exam Physical Exam HEENT: Normal Heart: Regular Rate Lungs: Clear Abdomen: Gravid, Non tender, Soft Extremities: Edema Reflexes: Normal Cervical Dilatation: 2cm Effacement: 50% Station: -3 Membranes: Ruptured Heart Rate: Normal Accelerations: Accelerations Present Decelerations: No decelerations Contractions on Admission: < 5 Minutes Apart Intensity: Mild Text A: 38 wks IUP Previous c/s GBS positive SROM P: Admit for repeat c/s. KIRA LEONG Jr, MD Oct 08, 2019 19:00
[2019-10-08 19:03] LABS: BACTERIA,URINE MODERATE /HPF (0-FEW); SQUAMOUS EPITHELIAL CELL,UR FEW /LPF
[2019-10-08] MEDS ORDERED: FAMOTIDINE 20 MG/2 ML VIAL ONE (19:04)
[2019-10-08] MEDS ORDERED: METOCLOPRAMIDE HCL 10 MG/2 ML VIAL. ONE (19:04)
--- NOTE | 2019-10-08 20:06 | PDOC4 ---
OB Operative Note Date: Oct 08, 2019 PRE OP DIAGNOSIS: Previoujs C- section (SROM) POST OP DIAGNOSIS: Other (SAme) OPERATION PERFORMED: R [facility] Surgeon Dr. Olivier Anesthesia: Regional (Spinal) Blood Loss 900 ml Specimen placenta and OB Findings: Position (Vertex), Sex (Male), (7/8), Weight (9 Lb) Complications none Additional Remarks pt. KIRA Chan Jr, MD Oct 08, 2019 20:06
[2019-10-08] MEDS: KETOROLAC 30 MG/ML VIAL. IV PRN (21:52)
--- NOTE | 2019-10-08 22:29 | OP ---
DATE OF SURGERY: PREOPERATIVE DIAGNOSES: 1. A 38 weeks intrauterine . 2. Previous section. 3. Spontaneous rupture of membranes. POSTOPERATIVE DIAGNOSES: 1. A 38 weeks intrauterine . 2. Previous section. 3. Spontaneous rupture of membranes. PROCEDURE: Repeat low transverse section. SURGEON: Kira Olivier MD ANESTHESIA: Spinal. ESTIMATED BLOOD LOSS: 100 mL. COMPLICATIONS: None. FINDINGS: Viable male infant, Apgars 7 and 8, weight 9 pounds. Three-vessel cord placenta delivered manually. SUMMARY: A 33-year-old 2, para 1 at 38 weeks, previous with spontaneous rupture of membranes, presented for repeat section. She was counseled on the risks, benefits and expectations and voiced clear understanding to proceed. DESCRIPTION OF PROCEDURE: The patient was taken to surgery suite and placed in dorsal supine position. She was prepped with ChloraPrep and draped in a sterile fashion. After adequate anesthesia, Pfannenstiel skin incision was made with scalpel down to and through the fascia. Fascia was extended laterally using curved Beckett scissors. The superior edge of fascia was grasped with two Rola clamps and dissected free of the abdominal rectus muscles using blunt dissection along with Bovie cautery. The same process took place inferiorly. The abdominal rectus was dissected bluntly at the midline. Peritoneum was grasped with 2 hemostats and entered sharply with Metzenbaum scissors. This incision was extended superiorly as well as inferiorly. The Rory ring retractor was placed. Low transverse hysterotomy incision was made with scalpel down to and through the uterus to the amniotic sac. Hysterotomy incision was extended laterally and superiorly digitally. Amniotomy was performed with Allis clamp, which elicited moderate amount of fluid. With aid of fundal pressure, the infant's head was delivered in a smooth atraumatic manner. With additional fundal pressure, the anterior shoulder was delivered followed by posterior shoulder and rest of male was delivered. Infant was suctioned with bulb syringe orally and nasally, umbilical cord was clamped twice and cut and viable male infant was handed to waiting nursing staff. Umbilical cord blood was then obtained. Three-vessel cord placenta was delivered manually intact. The uterus was then exteriorized and cleared of clot and debris with moist lap. Hysterotomy incision was reapproximated using #1 Vicryl suture in running locked fashion and imbricated layer of 1-0 Vicryl suture was utilized in a running fashion for better hemostasis. Uterus palpated firm. Fallopian tubes and ovaries appeared normal bilaterally. Posterior cul-de-sac was cleared of clot and debris with moist lap. The uterus was then returned to the abdomen. Pericolic gutters were cleared of clot and debris with moist lap. Hysterotomy incision was reviewed and was hemostatic. The Rory ring retractor was removed. Peritoneum was reapproximated using #1 Vicryl suture in running fashion. The muscles were reapproximated using #1 Vicryl suture in an interrupted fashion. Fascia was reapproximated using Stratafix in running fashion. Subcutaneous layer was reapproximated using #1 Vicryl suture in a running fashion. Skin was reapproximated using 4-0 Vicryl suture in subcuticular manner. Prevena wound VAC was placed. The patient tolerated the procedure well and was taken to recovery room in stable condition. Sponge and needle count correct x 3. KIRA OLIVIER MD DR: JEFFRY/patricia JOB#: [id number] / [id number]
[2019-10-08 23:00] VITALS: BP 120/69
[2019-10-08 23:15] VITALS: BP 115/70
[2019-10-08 23:30] VITALS: BP 119/67
[2019-10-08 23:45] VITALS: BP 124/83
[2019-10-09 00:30] VITALS: BP 124/75
[2019-10-09 03:15] VITALS: BP 123/69
[2019-10-09 06:00] VITALS: BP 104/77
[2019-10-09 06:55] LABS: BASO % 0 % (0-3); EOS # 0.1 x10^3/uL (0.0-0.7); EOS % 1 % (0-3); HEMATOCRIT 31.8 % (36.0-47.0); HEMOGLOBIN 10.5 g/dL (12.0-15.5); LYMPH # 1.9 x10^3/uL (1.0-4.8); LYMPH % 19 % (24-48); MEAN CORPUSCULAR HEMOGLOBIN 29 pg (25-35); MEAN CORPUSCULAR HGB CONC 33 g/dL (31-37); MEAN CORPUSCULAR VOLUME 89 fL (79-100); MONO # 0.8 x10^3/uL (0.0-1.1); MONO % 8 % (0-9); NEUT # 7.2 x10^3/uL (1.8-7.7); NEUT % 72 % (31-73); PLATELET COUNT 156 x10^3/uL (140-400); RED BLOOD COUNT 3.59 x10^6/uL (3.50-5.40); RED CELL DISTRIBUTION WIDTH 15.8 % (11.5-14.5)
[2019-10-09] MEDS: FERROUS SULFATE 325 MG TABLET. PO SCH ×2 (08:00→17:00)
[2019-10-09] MEDS: KETOROLAC 30 MG/ML VIAL. IV PRN (08:13)
--- NOTE | 2019-10-09 10:01 | PDOC ---
OB Progress Note Date of Service 10/09/19 Time of Evaluation 1000 Notes Pt. feeling well. Pain controlled. No complaints. Lab Laboratory Tests Test 10/08/19 18:06 10/08/19 18:30 10/09/19 04:55 Urine Collection Type Void Urine Color Yellow Urine Clarity Clear Urine pH 7.0 Urine Specific [place] <=1.005 Urine Protein Negative mg/dL (NEG-TRACE) Urine Glucose (UA) Negative mg/dL (NEG) Urine Ketones (Stick) Negative mg/dL (NEG) Urine Blood Small (NEG) Urine Nitrite Negative (NEG) Urine Bilirubin Negative (NEG) Urine Urobilinogen Dipstick 0.2 mg/dL (0.2 mg/dL) Urine Leukocyte Esterase Negative (NEG) Urine RBC 1-2 /HPF (0-2) Urine WBC 1-4 /HPF (0-4) Urine Squamous Epithelial Cells Few /LPF Urine Bacteria Moderate /HPF (0-FEW) White Blood Count 7.8 x10^3/uL (4.0-11.0) 10.0 x10^3/uL (4.0-11.0) Red Blood Count 4.14 x10^6/uL (3.50-5.40) 3.59 x10^6/uL (3.50-5.40) Hemoglobin 12.0 g/dL (12.0-15.5) 10.5 g/dL (12.0-15.5) Hematocrit 35.7 % (36.0-47.0) 31.8 % (36.0-47.0) Mean Corpuscular Volume 86 fL (79-100) 89 fL (79-100) Mean Corpuscular Hemoglobin 29 pg (25-35) 29 pg (25-35) Mean Corpuscular Hemoglobin Concent 34 g/dL (31-37) 33 g/dL (31-37) Red Cell Distribution Width 15.6 % (11.5-14.5) 15.8 % (11.5-14.5) Platelet Count 197 x10^3/uL (140-400) 156 x10^3/uL (140-400) Treponema pallidum Antibody Nonreactive (Nonreactive) Neutrophils (%) (Auto) 72 % (31-73) Lymphocytes (%) (Auto) 19 % (24-48) Monocytes (%) (Auto) 8 % (0-9) Eosinophils (%) (Auto) 1 % (0-3) Basophils (%) (Auto) 0 % (0-3) Neutrophils # (Auto) 7.2 x10^3/uL (1.8-7.7) Lymphocytes # (Auto) 1.9 x10^3/uL (1.0-4.8) Monocytes # (Auto) 0.8 x10^3/uL (0.0-1.1) Eosinophils # (Auto) 0.1 x10^3/uL (0.0-0.7) Basophils # (Auto) 0.0 x10^3/uL (0.0-0.2) Laboratory Tests Test 10/08/19 18:06 10/08/19 18:30 10/09/19 04:55 Urine Collection Type Void Urine Color Yellow Urine Clarity Clear Urine pH 7.0 Urine Specific [place] <=1.005 Urine Protein Negative mg/dL (NEG-TRACE) Urine Glucose (UA) Negative mg/dL (NEG) Urine Ketones (Stick) Negative mg/dL (NEG) Urine Blood Small (NEG) Urine Nitrite Negative (NEG) Urine Bilirubin Negative (NEG) Urine Urobilinogen Dipstick 0.2 mg/dL (0.2 mg/dL) Urine Leukocyte Esterase Negative (NEG) Urine RBC 1-2 /HPF (0-2) Urine WBC 1-4 /HPF (0-4) Urine Squamous Epithelial Cells Few /LPF Urine Bacteria Moderate /HPF (0-FEW) White Blood Count 7.8 x10^3/uL (4.0-11.0) 10.0 x10^3/uL (4.0-11.0) Red Blood Count 4.14 x10^6/uL (3.50-5.40) 3.59 x10^6/uL (3.50-5.40) Hemoglobin 12.0 g/dL (12.0-15.5) 10.5 g/dL (12.0-15.5) Hematocrit 35.7 % (36.0-47.0) 31.8 % (36.0-47.0) Mean Corpuscular Volume 86 fL (79-100) 89 fL (79-100) Mean Corpuscular Hemoglobin 29 pg (25-35) 29 pg (25-35) Mean Corpuscular Hemoglobin Concent 34 g/dL (31-37) 33 g/dL (31-37) Red Cell Distribution Width 15.6 % (11.5-14.5) 15.8 % (11.5-14.5) Platelet Count 197 x10^3/uL (140-400) 156 x10^3/uL (140-400) Treponema pallidum Antibody Nonreactive (Nonreactive) Neutrophils (%) (Auto) 72 % (31-73) Lymphocytes (%) (Auto) 19 % (24-48) Monocytes (%) (Auto) 8 % (0-9) Eosinophils (%) (Auto) 1 % (0-3) Basophils (%) (Auto) 0 % (0-3) Neutrophils # (Auto) 7.2 x10^3/uL (1.8-7.7) Lymphocytes # (Auto) 1.9 x10^3/uL (1.0-4.8) Monocytes # (Auto) 0.8 x10^3/uL (0.0-1.1) Eosinophils # (Auto) 0.1 x10^3/uL (0.0-0.7) Basophils # (Auto) 0.0 x10^3/uL (0.0-0.2) Medications Current Medications Ringer's Solution 1,000 ml @ 1,000 mls/hr Q1H IV Last administered on at 18:51; Start 10/08/19 at 18:16; Stop 10/08/19 at 19:15; Status DC Cefazolin Sodium 3 gm/Dextrose 100 ml @ 200 mls/hr 1X ONCE IV ; Start 10/08/19 at 18:30; Stop 10/08/19 at 18:59; Status DC Citric Acid/ Sodium Citrate (Bicitra) 30 ml 1X STAT PO Last administered on 10/08/19at 18:54; Start 10/08/19 at 18:31; Stop 10/08/19 at 18:39; Status DC Azithromycin 500 mg/Sodium Chloride 250 ml @ 250 mls/hr 1X ONCE IV ; Start 10/08/19 at 18:45; Stop 10/08/19 at 19:44; Status DC Oxytocin (Pitocin) 10 unit STK-MED ONCE .ROUTE ; Start 10/08/19 at 18:55; Stop 10/08/19 at 18:55; Status DC Phenylephrine HCl (PHENYLEPHRINE in 0.9% NACL PF) 1 mg STK-MED ONCE IV ; Start 10/08/19 at 18:56; Stop 10/08/19 at 18:56; Status DC Fentanyl Citrate (Fentanyl 2ml Vial) 100 mcg STK-MED ONCE .ROUTE ; Start 10/08/19 at 18:56; Stop 10/08/19 at 18:56; Status DC Ephedrine Sulfate (Akovaz) 50 mg STK-MED ONCE .ROUTE ; Start 10/08/19 at 18:57; Stop 10/08/19 at 18:57; Status DC Morphine Sulfate (Morphine Preservative Free) 10 mg STK-MED ONCE .ROUTE ; Start 10/08/19 at 18:58; Stop 10/08/19 at 18:58; Status DC Oxytocin (Pitocin) 10 unit STK-MED ONCE .ROUTE ; Start 10/08/19 at 18:59; Stop 10/08/19 at 18:59; Status DC Sodium Chloride (Normal Saline Flush) 3 ml QSHIFT PRN IV AFTER MEDS AND BLOOD DRAWS; Start 10/08/19 at 19:00 Oxytocin/Sodium Chloride 500 ml @ 125 mls/hr CONT PRN IV EXCESSIVE POST- BLEEDING Last administered on 10/08/19at 21:52; Start 10/08/19 at 19:00; Stop 10/09/19 at 02:59; Status DC Ibuprofen (Motrin) 800 mg PRN Q4HRS PRN PO INFLAMMATION; Start 10/08/19 at 19:00 Ondansetron HCl (Zofran) 4 mg PRN Q6HRS PRN IV NAUSEA/VOMITING; Start 10/08/19 at 19:00 Docusate Sodium (Colace) 100 mg PRN BID PRN PO CONSTIPATION; Start 10/08/19 at 19:00 Al Hydroxide/Mg Hydroxide (Mylanta Plus Xs) 30 ml PRN Q4HRS PRN PO HEARTBURN / GAS; Start 10/08/19 at 19:00 Simethicone (Gas-X) 80 mg PRN AFTMEALHC PRN PO GAS / BLOATING; Start 10/08/19 at 19:00 Diphenhydramine HCl (Benadryl Oral Elixir) 12.5 mg PRN Q6HRS PRN PO ITCHING Last administered on 10/09/19at 02:00; Start 10/08/19 at 19:00 Ferrous Sulfate (Feosol) 325 mg BIDWMEALS PO ; Start 10/09/19 at 08:00 Zolpidem Tartrate (Ambien) 5 mg PRN QHS PRN PO INSOMNIA, MAY REPEAT X1; Start 10/08/19 at 19:00 Oxycodone/ Acetaminophen (Percocet 5/325) 2 tab PRN Q4HRS PRN PO MODERATE PAIN, SEVERE PAIN; Start 10/08/19 at 19:00 Ketorolac Tromethamine (Toradol 30mg Vial) 30 mg PRN Q6HRS PRN IV PAIN Last administered on 10/09/19at 08:13; Start 10/08/19 at 19:00; Stop 10/13/19 at 18:59 Famotidine (Pepcid Vial) 20 mg STK-MED ONCE .ROUTE ; Start 10/08/19 at 19:04; Stop 10/08/19 at 19:04; Status DC Metoclopramide HCl (Reglan Vial) 10 mg STK-MED ONCE .ROUTE ; Start 10/08/19 at 19:04; Stop 10/08/19 at 19:04; Status DC Oxytocin (Pitocin) 10 unit STK-MED ONCE .ROUTE ; Start 10/08/19 at 19:30; Stop 10/08/19 at 19:30; Status DC Active Scripts Active Percocet 5-325 Mg Tablet (Oxycodone/Acetaminophen) 1 Each Tablet 1 Tab PO PRN Q6HRS PRN Ibuprofen 800 Mg Tablet 800 Mg PO PRN Q6HRS PRN Colace (Docusate Sodium) 100 Mg Capsule 100 Mg PO BID Reported Percocet 5-325 Mg Tablet (Oxycodone/Acetaminophen) 1 Each Tablet 1 Tab PO Q4HRS W/A PRN Exam Abd: soft, mild tenderness, fundus firm Prevena in place Assessment POD#1 s/p repeat c/s Plan of Care: Continue current Tx, Mgmt KIRA LEONG Jr, MD Oct 09, 2019 10:01
[2019-10-09] MEDS: oxyCODONE/APAP 5/325 1 TAB TABLET PO PRN ×2 (15:23→21:28)
[2019-10-09 15:41] VITALS: BP 109/78
[2019-10-09] MEDS: DOCUSATE SODIUM 100 MG CAPSULE. PO PRN (21:28)
[2019-10-09] MEDS: IBUPROFEN 400 MG TABLET. PO PRN (21:28)
[2019-10-09 21:57] VITALS: BP 118/70
[2019-10-10 06:00] VITALS: BP 117/67
[2019-10-10] MEDS: oxyCODONE/APAP 5/325 1 TAB TABLET PO PRN ×2 (07:10→12:32)
[2019-10-10] MEDS: DOCUSATE SODIUM 100 MG CAPSULE. PO PRN (07:10)
[2019-10-10] MEDS: FERROUS SULFATE 325 MG TABLET. PO SCH ×2 (08:00→17:00)
--- NOTE | 2019-10-10 08:00 | PDOC ---
OB Progress Note Date of Service 10/10/19 Time of Evaluation 0800 Notes Pt. feeling well per nursing staff. Lab Laboratory Tests Test 10/08/19 18:06 10/08/19 18:30 10/09/19 04:55 Urine Collection Type Void Urine Color Yellow Urine Clarity Clear Urine pH 7.0 Urine Specific [place] <=1.005 Urine Protein Negative mg/dL (NEG-TRACE) Urine Glucose (UA) Negative mg/dL (NEG) Urine Ketones (Stick) Negative mg/dL (NEG) Urine Blood Small (NEG) Urine Nitrite Negative (NEG) Urine Bilirubin Negative (NEG) Urine Urobilinogen Dipstick 0.2 mg/dL (0.2 mg/dL) Urine Leukocyte Esterase Negative (NEG) Urine RBC 1-2 /HPF (0-2) Urine WBC 1-4 /HPF (0-4) Urine Squamous Epithelial Cells Few /LPF Urine Bacteria Moderate /HPF (0-FEW) White Blood Count 7.8 x10^3/uL (4.0-11.0) 10.0 x10^3/uL (4.0-11.0) Red Blood Count 4.14 x10^6/uL (3.50-5.40) 3.59 x10^6/uL (3.50-5.40) Hemoglobin 12.0 g/dL (12.0-15.5) 10.5 g/dL (12.0-15.5) Hematocrit 35.7 % (36.0-47.0) 31.8 % (36.0-47.0) Mean Corpuscular Volume 86 fL (79-100) 89 fL (79-100) Mean Corpuscular Hemoglobin 29 pg (25-35) 29 pg (25-35) Mean Corpuscular Hemoglobin Concent 34 g/dL (31-37) 33 g/dL (31-37) Red Cell Distribution Width 15.6 % (11.5-14.5) 15.8 % (11.5-14.5) Platelet Count 197 x10^3/uL (140-400) 156 x10^3/uL (140-400) Treponema pallidum Antibody Nonreactive (Nonreactive) Neutrophils (%) (Auto) 72 % (31-73) Lymphocytes (%) (Auto) 19 % (24-48) Monocytes (%) (Auto) 8 % (0-9) Eosinophils (%) (Auto) 1 % (0-3) Basophils (%) (Auto) 0 % (0-3) Neutrophils # (Auto) 7.2 x10^3/uL (1.8-7.7) Lymphocytes # (Auto) 1.9 x10^3/uL (1.0-4.8) Monocytes # (Auto) 0.8 x10^3/uL (0.0-1.1) Eosinophils # (Auto) 0.1 x10^3/uL (0.0-0.7) Basophils # (Auto) 0.0 x10^3/uL (0.0-0.2) Medications Current Medications Ringer's Solution 1,000 ml @ 1,000 mls/hr Q1H IV Last administered on 10/08/19at 18:51; Start 10/08/19 at 18:16; Stop 10/08/19 at 19:15; Status DC Cefazolin Sodium 3 gm/Dextrose 100 ml @ 200 mls/hr 1X ONCE IV ; Start 10/08/19 at 18:30; Stop 10/09/19 at 10:20; Status DC Citric Acid/ Sodium Citrate (Bicitra) 30 ml 1X STAT PO Last administered on 10/08/19at 18:54; Start 10/08/19 at 18:31; Stop 10/09/19 at 10:20; Status DC Azithromycin 500 mg/Sodium Chloride 250 ml @ 250 mls/hr 1X ONCE IV ; Start 10/08/19 at 18:45; Stop 10/09/19 at 10:20; Status DC Oxytocin (Pitocin) 10 unit STK-MED ONCE .ROUTE ; Start 10/08/19 at 18:55; Stop 10/08/19 at 18:55; Status DC Phenylephrine HCl (PHENYLEPHRINE in 0.9% NACL PF) 1 mg STK-MED ONCE IV ; Start 10/08/19 at 18:56; Stop 10/08/19 at 18:56; Status DC Fentanyl Citrate (Fentanyl 2ml Vial) 100 mcg STK-MED ONCE .ROUTE ; Start 10/08/19 at 18:56; Stop 10/08/19 at 18:56; Status DC Ephedrine Sulfate (Akovaz) 50 mg STK-MED ONCE .ROUTE ; Start 10/08/19 at 18:57; Stop 10/08/19 at 18:57; Status DC Morphine Sulfate (Morphine Preservative Free) 10 mg STK-MED ONCE .ROUTE ; Start 10/08/19 at 18:58; Stop 10/08/19 at 18:58; Status DC Oxytocin (Pitocin) 10 unit STK-MED ONCE .ROUTE ; Start 10/08/19 at 18:59; Stop 10/08/19 at 18:59; Status DC Sodium Chloride (Normal Saline Flush) 3 ml QSHIFT PRN IV AFTER MEDS AND BLOOD DRAWS; Start 10/08/19 at 19:00; Stop 10/09/19 at 10:20; Status DC Oxytocin/Sodium Chloride 500 ml @ 125 mls/hr CONT PRN IV EXCESSIVE POST- BLEEDING Last administered on 10/08/19at 21:52; Start 10/08/19 at 19:00; Stop 10/09/19 at 02:59; Status DC Ibuprofen (Motrin) 800 mg PRN Q4HRS PRN PO INFLAMMATION Last administered on 10/09/19at 21:28; Start 10/08/19 at 19:00 Ondansetron HCl (Zofran) 4 mg PRN Q6HRS PRN IV NAUSEA/VOMITING; Start 10/08/19 at 19:00 Docusate Sodium (Colace) 100 mg PRN BID PRN PO CONSTIPATION Last administered on 10/10/19at 07:10; Start 10/08/19 at 19:00 Al Hydroxide/Mg Hydroxide (Mylanta Plus Xs) 30 ml PRN Q4HRS PRN PO HEARTBURN / GAS; Start 10/08/19 at 19:00 Simethicone (Gas-X) 80 mg PRN AFTMEALHC PRN PO GAS / BLOATING Last administered on 10/09/19at 21:28; Start 10/08/19 at 19:00 Diphenhydramine HCl (Benadryl Oral Elixir) 12.5 mg PRN Q6HRS PRN PO ITCHING Last administered on 10/09/19at 02:00; Start 10/08/19 at 19:00 Ferrous Sulfate (Feosol) 325 mg BIDWMEALS PO ; Start 10/09/19 at 08:00 Zolpidem Tartrate (Ambien) 5 mg PRN QHS PRN PO INSOMNIA, MAY REPEAT X1; Start 10/08/19 at 19:00 Oxycodone/ Acetaminophen (Percocet 5/325) 2 tab PRN Q4HRS PRN PO MODERATE PAIN, SEVERE PAIN Last administered on 10/10/19 07:10; Start 10/08/19 at 19:00 Ketorolac Tromethamine (Toradol 30mg Vial) 30 mg PRN Q6HRS PRN IV PAIN Last administered on 10/09/19 08:13; Start 10/08/19 at 19:00; Stop 10/13/19 at 18:59 Famotidine (Pepcid Vial) 20 mg STK-MED ONCE .ROUTE ; Start 10/08/19 at 19:04; Stop 10/08/19 at 19:04; Status DC Metoclopramide HCl (Reglan Vial) 10 mg STK-MED ONCE .ROUTE ; Start 10/08/19 at 19:04; Stop 10/08/19 at 19:04; Status DC Oxytocin (Pitocin) 10 unit STK-MED ONCE .ROUTE ; Start 10/08/19 at 19:30; Stop 10/08/19 at 19:30; Status DC Active Scripts Active Percocet 5-325 Mg Tablet (Oxycodone/Acetaminophen) 1 Each Tablet 1 Tab PO PRN Q6HRS PRN Ibuprofen 800 Mg Tablet 800 Mg PO PRN Q6HRS PRN Colace (Docusate Sodium) 100 Mg Capsule 100 Mg PO BID Reported Percocet 5-325 Mg Tablet (Oxycodone/Acetaminophen) 1 Each Tablet 1 Tab PO Q4HRS W/A PRN Exam Abd: soft, mild tenderness Prevena in place Assessment POD#2 s/p repeat c/s Plan of Care: Continue current Tx, Mgmt KIRA LEONG Jr, MD Oct 10, 2019 08:00
[2019-10-10] MEDS: IBUPROFEN 400 MG TABLET. PO PRN (12:32)
[2019-10-10 12:34] VITALS: BP 124/76
[2019-10-10] MEDS ORDERED: IV RINGERS,LACTATED 1000ML 1,000 ML IV SCH (12:59)
[2019-10-10] MEDS ORDERED: OXYC1TAB15 PO (17:00)
[2019-10-10] MEDS ORDERED: IBUP-1060 PO (17:00)
[2019-10-10] MEDS ORDERED: DOCU-109 PO (17:00)
--- NOTE | 2019-10-10 17:01 | DISCH ---
DISCHARGE INSTRUCTIONS Condition on Discharge Condition on Discharge: Stable Activity After Discharge Activity Instructions for Disc: Activity as tolerated Lifting Instructions after Dis: No heavy lifting Driving Instructions after Dis: No driving for 2 weeks Diet after Discharge Diet after Discharge: Regular Contacting the DRMissael after DC Call your doctor for: Concerns you may have Follow-Up Follow up with: Dr. Olivier in 2 weeks. KIRA OLIVIER Jr, MD Oct 10, 2019 17:01
[2019-10-10 18:43] VITALS: BP 133/86
--- NOTE | 2019-10-10 18:48 | NUR ---
Discharge Note: ALEIDA PERALES SO LND Discharge instructions and discharge home medications reviewed with Patient and a copy given. All questions have been answered and understanding verbalized. All follow up appointments were reviewed. The following instructions and handouts were given: care after delivery. Patient discharged to home with self-care via wc to private vehicle.
== END 2019-10-10 18:16 | disposition home or self-care (01) | DRG 788 ==
LOC: 3 SO LND 17:45 → OBSVTOIN 17:45 → 3 SO LND 22:30
PROVIDERS: ADMIT Obstetrics & Gynecology; ATTEND Obstetrics & Gynecology
PROC: 10D00Z1 Extraction of Products of Conception, Low, Open Approach (ICD-10-PCS; principal; 2019-10-08)
DX: O34.211 Maternal care for low transverse scar from previous cesarean delivery (principal); O99.824 Streptococcus B carrier state complicating childbirth; Z3A.38 38 weeks gestation of pregnancy; Z37.0 Single live birth
CPT/HCPCS: 36415; 81001; 85025; 85027; 86592; 86850; 86900; 86901; 87086; J1885; J2274; J2370; J2590; J2765; J3010; J3490; J7120; G0378

== ENCOUNTER 2019-10-19 22:56 | Emergency (ER) | payer OTHER ==
[~2019-10-19] VITALS: Ht 175.3 cm; Wt 127.0 kg
--- NOTE | 2019-10-19 23:28 | PHYS DOC ---
Past Medical History Past Medical History: No Pertinent History (MICHAEL BOWDEN APRN) Past Surgical History: (MICHAEL BOWDEN APRN) Alcohol Use: Rarely Drug Use: None (MICHAEL BOWDEN APRN) Attending Signature I have participated in the care of this patient and I have reviewed and agree with all pertinent clinical information above including history, exam, and recommendations. (HEATHER LUGO MD) Adult General Chief Complaint Chief Complaint: LOWER EXTREMITY SWELLING HPI HPI Patient is a 33 year old [f female] who presents with [headache, worsening leg edema. Patient reports she is 11 days , over the last couple days she hasn't some increased edema in her lower legs, left worse than right. States she is also had an increased headache over the last day. Reports she checked her blood pressure prior to coming in following up to 170's systolic. Initial bp Here 166 systolic. Denies any shortness of breath, denies any fatigue. States she did not have any issues with hypertension during her . Denies any visual changes. States she has not tried taking medications for this discomfort. Reports incision healing well, she has not tried to take any pain medications for a few days.Dr Olivier is OBGYN] (MICHAEL BOWDEN APRN) Review of Systems Review of Systems Constitutional: Denies fever or chills [] Eyes: Denies change in visual acuity, redness, or eye pain [] HENT: Denies nasal congestion or sore throat [] Respiratory: Denies cough or shortness of breath [] Cardiovascular: No additional information not addressed in HPI [] GI: Denies abdominal pain, nausea, vomiting, bloody stools or diarrhea [] : Denies dysuria or hematuria [] Musculoskeletal: Denies back pain or joint pain [] Integument: Denies rash or skin lesions reports discoloration to left lower leg is normal for her, she has had vascular issues for years [] Neurologic: Denies focal weakness or sensory changes reports headache[] Endocrine: Denies polyuria or polydipsia [] All other systems were reviewed and found to be within normal limits, except as documented in this note. (MICHAEL BOWDEN APRN) Current Medications Current Medications Current Medications Medications (Trade) Dose Ordered Sig/Darby Start Time Stop Time Status Last Admin Dose Admin Furosemide (Lasix) 20 mg 1X ONCE 10/20/19 00:30 10/20/19 00:31 DC 10/20/19 00:32 20 MG (HEATHER LUGO MD) Allergies Allergies Allergies Coded Allergies Type Severity Reaction Last Updated Verified No Known Drug Allergies 07/14/17 No (HEATHER LUGO MD) Physical Exam Physical Exam Constitutional: Well developed, well nourished, no acute distress, non-toxic appearance. [] HENT: Normocephalic, atraumatic, bilateral external ears normal, oropharynx moist, no oral exudates, nose normal. [] Eyes: PERRLA, EOMI, conjunctiva normal, no discharge. [] Neck: Normal range of motion, no tenderness, supple, no stridor. [] Cardiovascular:Heart rate regular rhythm, no murmur [] Lungs & Thorax: Bilateral breath sounds clear to auscultation [] Abdomen: Bowel sounds normal, soft, no tenderness, no masses, no pulsatile masses. incision will approximate, well-healed, no erythema, no purulence, no discomfort on palpation[] Skin: Warm, dry, no erythema, no rash. [] Back: No tenderness, no CVA tenderness. [] Extremities: No tenderness, no cyanosis, no clubbing, ROM intact, left leg with moderate edema, nonpitting. Right leg with edema, left worse than right. Discoloration noted to skin on left lower leg, reportedly normal for patient, no change.[] Neurologic: Alert and oriented X 3, normal motor function, normal sensory function, no focal deficits noted. [] Psychologic: Affect normal, judgement normal, mood normal. [] (MICHAEL BOWDEN APRN) Current Patient Data Vital Signs Vital Signs Date Time Temp Pulse Resp B/P (MAP) Pulse Ox O2 Delivery O2 Flow Rate FiO2 10/20/19 00:34 65 158/72 (100) 10/19/19 23:18 97.8 16 100 Room Air 97.8 (HEATHER LUGO MD) Lab Values Laboratory Tests Test 10/19/19 23:01 10/19/19 23:30 Urine Collection Type Unknown Urine Color Yellow Urine Clarity Clear Urine pH 6.5 Urine Specific [place] 1.015 Urine Protein Negative mg/dL (NEG-TRACE) Urine Glucose (UA) Negative mg/dL (NEG) Urine Ketones (Stick) Negative mg/dL (NEG) Urine Blood Large (NEG) Urine Nitrite Negative (NEG) Urine Bilirubin Negative (NEG) Urine Urobilinogen Dipstick 0.2 mg/dL (0.2 mg/dL) Urine Leukocyte Esterase Small (NEG) Urine RBC 20-40 /HPF (0-2) Urine WBC 1-4 /HPF (0-4) Urine Squamous Epithelial Cells Few /LPF Urine Bacteria Few /HPF (0-FEW) Urine Mucus Slight /LPF White Blood Count 8.5 x10^3/uL (4.0-11.0) Red Blood Count 3.94 x10^6/uL (3.50-5.40) Hemoglobin 11.2 g/dL (12.0-15.5) L Hematocrit 34.2 % (36.0-47.0) L Mean Corpuscular Volume 87 fL (79-100) Mean Corpuscular Hemoglobin 29 pg (25-35) Mean Corpuscular Hemoglobin Concent 33 g/dL (31-37) Red Cell Distribution Width 14.6 % (11.5-14.5) H Platelet Count 286 x10^3/uL (140-400) Neutrophils (%) (Auto) 59 % (31-73) Lymphocytes (%) (Auto) 31 % (24-48) Monocytes (%) (Auto) 6 % (0-9) Eosinophils (%) (Auto) 2 % (0-3) Basophils (%) (Auto) 1 % (0-3) Neutrophils # (Auto) 5.0 x10^3/uL (1.8-7.7) Lymphocytes # (Auto) 2.6 x10^3/uL (1.0-4.8) Monocytes # (Auto) 0.5 x10^3/uL (0.0-1.1) Eosinophils # (Auto) 0.2 x10^3/uL (0.0-0.7) Basophils # (Auto) 0.1 x10^3/uL (0.0-0.2) Sodium Level 141 mmol/L (136-145) Potassium Level 4.0 mmol/L (3.5-5.1) Chloride Level 107 mmol/L (98-107) Carbon Dioxide Level 26 mmol/L (21-32) Anion Gap 8 (6-14) Blood Urea Nitrogen 12 mg/dL (7-20) Creatinine 0.8 mg/dL (0.6-1.0) Estimated GFR (Cockcroft-Gault) 83.7 BUN/Creatinine Ratio 15 (6-20) Glucose Level 102 mg/dL (70-99) H Calcium Level 8.4 mg/dL (8.5-10.1) L Magnesium Level 1.9 mg/dL (1.8-2.4) Total Bilirubin 0.5 mg/dL (0.2-1.0) Aspartate Amino Transferase (AST) 17 U/L (15-37) Alanine Aminotransferase (ALT) 35 U/L (14-59) Alkaline Phosphatase 154 U/L (46-116) H DT-Hiz-X-Type Natriuretic Peptide 207 pg/mL (0-124) H Total Protein 6.3 g/dL (6.4-8.2) L Albumin 2.6 g/dL (3.4-5.0) L Albumin/Globulin Ratio 0.7 (1.0-1.7) L Laboratory Tests 10/19/19 23:30 Laboratory Tests 10/19/19 23:30 (HEATHER LUGO MD) Lab Values Laboratory Tests Test 10/19/19 23:01 10/19/19 23:30 Urine Collection Type Unknown Urine Color Yellow Urine Clarity Clear Urine pH 6.5 Urine Specific [place] 1.015 Urine Protein Negative mg/dL (NEG-TRACE) Urine Glucose (UA) Negative mg/dL (NEG) Urine Ketones (Stick) Negative mg/dL (NEG) Urine Blood Large (NEG) Urine Nitrite Negative (NEG) Urine Bilirubin Negative (NEG) Urine Urobilinogen Dipstick 0.2 mg/dL (0.2 mg/dL) Urine Leukocyte Esterase Small (NEG) Urine RBC 20-40 /HPF (0-2) Urine WBC 1-4 /HPF (0-4) Urine Squamous Epithelial Cells Few /LPF Urine Bacteria Few /HPF (0-FEW) Urine Mucus Slight /LPF White Blood Count 8.5 x10^3/uL (4.0-11.0) Red Blood Count 3.94 x10^6/uL (3.50-5.40) Hemoglobin 11.2 g/dL (12.0-15.5) L Hematocrit 34.2 % (36.0-47.0) L Mean Corpuscular Volume 87 fL (79-100) Mean Corpuscular Hemoglobin 29 pg (25-35) Mean Corpuscular Hemoglobin Concent 33 g/dL (31-37) Red Cell Distribution Width 14.6 % (11.5-14.5) H Platelet Count 286 x10^3/uL (140-400) Neutrophils (%) (Auto) 59 % (31-73) Lymphocytes (%) (Auto) 31 % (24-48) Monocytes (%) (Auto) 6 % (0-9) Eosinophils (%) (Auto) 2 % (0-3) Basophils (%) (Auto) 1 % (0-3) Neutrophils # (Auto) 5.0 x10^3/uL (1.8-7.7) Lymphocytes # (Auto) 2.6 x10^3/uL (1.0-4.8) Monocytes # (Auto) 0.5 x10^3/uL (0.0-1.1) Eosinophils # (Auto) 0.2 x10^3/uL (0.0-0.7) Basophils # (Auto) 0.1 x10^3/uL (0.0-0.2) Sodium Level 141 mmol/L (136-145) Potassium Level 4.0 mmol/L (3.5-5.1) Chloride Level 107 mmol/L (98-107) Carbon Dioxide Level 26 mmol/L (21-32) Anion Gap 8 (6-14) Blood Urea Nitrogen 12 mg/dL (7-20) Creatinine 0.8 mg/dL (0.6-1.0) Estimated GFR (Cockcroft-Gault) 83.7 BUN/Creatinine Ratio 15 (6-20) Glucose Level 102 mg/dL (70-99) H Calcium Level 8.4 mg/dL (8.5-10.1) L Magnesium Level 1.9 mg/dL (1.8-2.4) Total Bilirubin 0.5 mg/dL (0.2-1.0) Aspartate Amino Transferase (AST) 17 U/L (15-37) Alanine Aminotransferase (ALT) 35 U/L (14-59) Alkaline Phosphatase 154 U/L (46-116) H BM-Gwc-J-Type Natriuretic Peptide 207 pg/mL (0-124) H Total Protein 6.3 g/dL (6.4-8.2) L Albumin 2.6 g/dL (3.4-5.0) L Albumin/Globulin Ratio 0.7 (1.0-1.7) L Laboratory Tests 10/19/19 23:30 Laboratory Tests 10/19/19 23:30 (MICHAEL BOWDEN APRN) EKG EKG [] (MICHAEL BOWDEN APRN) Radiology/Procedures Radiology/Procedures [] Findings: No consolidation or pleural effusion. Prominent cardiac silhouette. No pneumothorax. Impression: 1. Prominent cardiac silhouette although portable technique accentuates cardiac size. 2. Otherwise, no acute cardiopulmonary process. Electronically signed by: Moo Torres DO (10/19/2019 11:43 PM) [facility] (MICHAEL BOWDEN APRN) Course & Med Decision Making Course & Med Decision Making Pertinent Labs and Imaging studies reviewed. (See chart for details) []Discussed results with Dr Olivier, advises no need for admission, recommends start patient on low dose lasix and have patient follow up in clinic as scheduled this week. Believe headache largely related to edema, may continue tylenol. Discussed results with patient and family, patient in agreement with plan to discharge and follow up. (MICHAEL BOWDEN APRN) Dragon Disclaimer Dragon Disclaimer This electronic medical record was generated, in whole or in part, using a voice recognition dictation system. (MICHAEL BOWDEN APRN) Departure Departure Impression: Primary Impression: Edema during , antepartum Disposition: HOME, SELF-CARE Condition: STABLE Referrals: NO PCP (PCP) Patient Instructions: Edema, [id number] Additional Instructions: As we discussed, take the water pill for the next few days. Keep her appointment with Dr. Olivier on Monday as previously scheduled. Scripts Furosemide (FUROSEMIDE) 20 Mg Tablet 20 MG PO DAILY for 4 Days, #4 TAB Prov: MICHAEL BOWDEN APRN 10/20/19 MICHAEL BOWDEN APRN Oct 19, 2019 23:28 HEATHER LUGO MD Oct 20, 2019 18:11
[2019-10-19 23:30] LABS: BILIRUBIN,URINE NEGATIVE (NEG); CLARITY,URINE CLEAR; COLOR,URINE YELLOW; NITRITE,URINE NEGATIVE (NEG); PH,URINE 6.5; PROTEIN,URINE NEGATIVE (NEG-TRACE); UROBILINOGEN,URINE 0.2 mg/dL (0.2 mg/dL)
[2019-10-19 23:36] LABS: RBC,URINE 20-40 /HPF (0-2)
[2019-10-19 23:37] LABS: BACTERIA,URINE FEW /HPF (0-FEW); SQUAMOUS EPITHELIAL CELL,UR FEW /LPF
[2019-10-19 23:41] LABS: BASO # 0.1 x10^3/uL (0.0-0.2); BASO % 1 % (0-3); EOS # 0.2 x10^3/uL (0.0-0.7); EOS % 2 % (0-3); HEMATOCRIT 34.2 % (36.0-47.0); HEMOGLOBIN 11.2 g/dL (12.0-15.5); LYMPH # 2.6 x10^3/uL (1.0-4.8); LYMPH % 31 % (24-48); MEAN CORPUSCULAR HEMOGLOBIN 29 pg (25-35); MEAN CORPUSCULAR HGB CONC 33 g/dL (31-37); MEAN CORPUSCULAR VOLUME 87 fL (79-100); MONO # 0.5 x10^3/uL (0.0-1.1); MONO % 6 % (0-9); NEUT % 59 % (31-73); PLATELET COUNT 286 x10^3/uL (140-400); RED BLOOD COUNT 3.94 x10^6/uL (3.50-5.40); RED CELL DISTRIBUTION WIDTH 14.6 % (11.5-14.5); WHITE BLOOD COUNT 8.5 x10^3/uL (4.0-11.0)
--- NOTE | 2019-10-19 23:46 | RAD ---
CHEST AP ONLY History: edema Comparison: None. Findings: No consolidation or pleural effusion. Prominent cardiac silhouette. No pneumothorax. Impression: 1. Prominent cardiac silhouette although portable technique accentuates cardiac size. 2. Otherwise, no acute cardiopulmonary process. Electronically signed by: Moo Torres DO (10/19/2019 11:43 PM) [id number]
[2019-10-19 23:50] LABS: CALCIUM 8.4 mg/dL (8.5-10.1); CREATININE 0.8 mg/dL (0.6-1.0); GFR 83.7
[2019-10-19 23:56] LABS: ALBUMIN 2.6 g/dL (3.4-5.0); ALBUMIN/GLOBULIN RATIO 0.7 (1.0-1.7); TOTAL BILIRUBIN 0.5 mg/dL (0.2-1.0); TOTAL PROTEIN 6.3 g/dL (6.4-8.2)
[2019-10-20] MEDS ORDERED: FURO20TA3 PO (00:15)
[2019-10-20] MEDS ORDERED: FUROSEMIDE 40 MG TABLET. PO ONE (00:30)
[2019-10-20 00:34] VITALS: BP 158/72
== END 2019-10-20 00:35 | disposition home or self-care (01) ==
LOC: ER 22:56
DX: O12.05 Gestational edema, complicating the puerperium (principal); O99.73 Diseases of the skin and subcutaneous tissue complicating the puerperium; Z98.890 Other specified postprocedural states
CPT/HCPCS: 36415; 71045; 80053; 81001; 83735; 83880; 85025; 87086; 99285

== ENCOUNTER → 2020-04-23 | Outpatient (CLI) | payer OTHER ==
[~2020-04-23] MED LIST changes: +FURO20TA3 PO
== END | disposition home or self-care (01) ==
LOC: LAB 14:00
PROVIDERS: ATTEND Internal Medicine Pulmonary Disease
DX: Z20.828 Contact with and (suspected) exposure to other viral communicable diseases (principal)
CPT/HCPCS: U0003-CS

== ENCOUNTER 2021-09-13 19:33 | Emergency (ER) | payer OTHER ==
[~2021-09-13] VITALS: Ht 177.8 cm; Wt 122.0 kg
[2021-09-13 19:40] VITALS: BP 140/94
--- NOTE | 2021-09-13 19:54 | PHYS DOC ---
Past Medical History Past Medical History: No Pertinent History Past Surgical History: Smoking Status: Never Smoker Alcohol Use: Rarely Drug Use: None General Adult EDM: Chief Complaint: PAIN ON URINATION HPI: HPI: Patient is a 35 year old female who presents with dysuria, urgency, frequency for the past several days. States that she took amoxicillin for sinusitis in August, and then was diagnosed with a yeast infection following that. This cleared up with a single dose of Diflucan. Over the past few days has had increasing urinary symptoms and suprapubic pressure. She had a brief moment of flank discomfort that was fleeting, and has not been persistent. Denies fever/chills. No nausea/vomiting. No abdominal pain. No antibiotic allergies. Feels similar to previous urinary tract infections. Took a test yesterday, which she states was negative Review of Systems: Review of Systems: Constitutional: Denies fever or chills. [] Eyes: Denies change in visual acuity. [] HENT: Denies nasal congestion or sore throat. [] Respiratory: Denies cough or shortness of breath. [] GI: Denies abdominal pain, nausea, vomiting, : Reports dysuria, urgency, frequency. Musculoskeletal: Denies back pain or joint pain. [] Neurologic: Denies headache, focal weakness or sensory changes. [] Endocrine: Denies polyuria or polydipsia. [] Lymphatic: Denies swollen glands. [] Psychiatric: Denies depression or anxiety. [] Heart Score: C/O Chest Pain: No Allergies: Allergies: Allergies Coded Allergies Type Severity Reaction Last Updated Verified No Known Drug Allergies 07/14/17 No Physical Exam: PE: Constitutional: Well-appearing, sitting up in chair Neck: Normal range of motion, no tenderness, supple, no stridor. [] Cardiovascular:Heart rate regular rhythm, no murmur [] Lungs & Thorax: Bilateral breath sounds clear to auscultation [] Abdomen: Bowel sounds normal, soft, no tenderness, no masses, no pulsatile masses. [] Skin: Warm, dry, no erythema, no rash. [] Back: No tenderness, no CVA tenderness. [] Neurologic: Alert and oriented X 3, normal motor function, normal sensory function, no focal deficits noted. [] Psychologic: Affect normal, judgement normal, mood normal. [] EKG: EKG: [] Radiology/Procedures: Radiology/Procedures: [] Course & Med Decision Making: Course & Med Decision Making Pertinent Labs and Imaging studies reviewed. (See chart for details) Patient a 35-year-old female who presents with dysuria, urgency, frequency. Brief, self resolving flank pain, but no other symptoms of pyelonephritis. On arrival is afebrile, hemodynamically stable. Well-appearing on exam. No CVA tenderness to palpation. We will check UA and urine test. 1951 UA made more difficult to interpret by Azo and orange appearance However, has numerous white blood cells and bacteria consistent with UTI. Bactrim Rx sent 2037 [employer] Disclaimer: [employer] Disclaimer: This electronic medical record was generated, in whole or in part, using a voice recognition dictation system. Departure Departure Impression: Primary Impression: Urinary tract infection Disposition: HOME / SELF CARE / HOMELESS Condition: STABLE Referrals: NO PCP (PCP) Patient Instructions: Urinary Tract Infection Scripts Sulfamethoxazole/Trimethoprim (BACTRIM DS TABLET) 1 Each Tablet 1 TAB PO BID for infection for 7 Days, #14 TAB 0 Refills Prov: MARIAH IRVING MD 09/13/21 MARIAH IRVING MD Sep 13, 2021 19:54
[2021-09-13 20:03] LABS: CLARITY,URINE CLOUDY; COLOR,URINE ORANGE
[2021-09-13 20:11] LABS: U PREG PATIENT NEGATIVE (NEG)
[2021-09-13 20:16] LABS: BACTERIA,URINE MODERATE /HPF (0-FEW); WBC,URINE TNTC /HPF (0-4)
[2021-09-13] MEDS ORDERED: SULF1TAB24 PO (20:41)
--- NOTE | 2021-09-16 16:12 | VNOTE ---
CALL BACK NOTE CALL BACK Microbiology 09/13/21 Urine Culture - Final, Complete 09/13/21 Antimicrobic Susceptibility - Final, Complete No answer to cell phone call and attempt to obtain pharmacy for new antibiotic treatment. Patient originally prescribed Bactrim, however urine C&S shows resistance. New prescription for Macrobid written and provided with letter for patient notification. GÉNESIS MENDOZA Sep 16, 2021 16:12
== END 2021-09-13 21:03 | disposition home or self-care (01) ==
LOC: ER 19:33
DX: N39.0 Urinary tract infection, site not specified (principal)
CPT/HCPCS: 81001; 81025; 87086; 99283

== ENCOUNTER → 2021-09-20 | Outpatient (CLI) | payer OTHER ==
[2021-09-13 19:40] VITALS: BP 140/94
[~2021-09-20] MED LIST changes: +SULF1TAB24 PO
[2021-09-20 11:16] LABS: BASO % 0 % (0-3); EOS # 0.4 x10^3/uL (0.0-0.7); EOS % 10 % (0-3); HEMATOCRIT 38.8 % (36.0-47.0); HEMOGLOBIN 12.4 g/dL (12.0-15.5); LYMPH # 0.8 x10^3/uL (1.0-4.8); LYMPH % 19 % (24-48); MEAN CORPUSCULAR HEMOGLOBIN 26 pg (25-35); MEAN CORPUSCULAR HGB CONC 32 g/dL (31-37); MEAN CORPUSCULAR VOLUME 80 fL (79-100); MONO # 0.5 x10^3/uL (0.0-1.1); MONO % 13 % (0-9); NEUT # 2.2 x10^3/uL (1.8-7.7); NEUT % 57 % (31-73); PLATELET COUNT 204 x10^3/uL (140-400); RED BLOOD COUNT 4.84 x10^6/uL (3.50-5.40); RED CELL DISTRIBUTION WIDTH 15.4 % (11.5-14.5); WHITE BLOOD COUNT 3.9 x10^3/uL (4.0-11.0)
== END ==
LOC: LAB 10:49
PROVIDERS: ATTEND Obstetrics & Gynecology
DX: O34.219 Maternal care for unspecified type scar from previous cesarean delivery (principal); Z3A.00 Weeks of gestation of pregnancy not specified
CPT/HCPCS: 85025; 86592; 86762; 86850; 86900; 86901; 87340

== ENCOUNTER → 2021-09-29 | Outpatient (CLI) | payer OTHER ==
[2021-09-13 19:40] VITALS: BP 140/94
[2021-09-29 11:37] LABS: BASO # 0.1 x10^3/uL (0.0-0.2); BASO % 1 % (0-3); EOS # 0.1 x10^3/uL (0.0-0.7); EOS % 1 % (0-3); HEMOGLOBIN 11.2 g/dL (12.0-15.5); LYMPH # 2.3 x10^3/uL (1.0-4.8); LYMPH % 29 % (24-48); MEAN CORPUSCULAR HEMOGLOBIN 26 pg (25-35); MEAN CORPUSCULAR HGB CONC 33 g/dL (31-37); MEAN CORPUSCULAR VOLUME 80 fL (79-100); MONO # 0.5 x10^3/uL (0.0-1.1); MONO % 7 % (0-9); NEUT % 62 % (31-73); PLATELET COUNT 247 x10^3/uL (140-400); RED BLOOD COUNT 4.25 x10^6/uL (3.50-5.40); RED CELL DISTRIBUTION WIDTH 15.7 % (11.5-14.5)
[2021-09-29 12:10] LABS: FREE T4 1.06 ng/dL (0.76-1.46); THYROID STIM HORMONE (TSH) 1.409 uIU/mL (0.358-3.74)
[2021-09-30 01:11] LABS: HEMOGLOBIN A1C 5.8 % (4.8-5.6)
== END ==
LOC: LAB 10:59
PROVIDERS: ATTEND Clinical Nurse Specialist Women's Health
DX: Z34.91 Encounter for supervision of normal pregnancy, unspecified, first trimester (principal)
CPT/HCPCS: 36415; 82306; 83036; 84439; 84443; 85025; 86592; 86703; 86803; 86850; 86900; 86901; 87086

== ENCOUNTER → 2021-10-12 | Outpatient (CLI) | payer OTHER ==
[2021-09-13 19:40] VITALS: BP 140/94
--- NOTE | 2021-10-12 20:53 | RAD ---
US OB <14 WKS History: Reason: UNSURE DATES / Spl. Instructions: / History: Comparison: None. Technique: Grayscale and color Doppler imaging of the pelvis was performed using transabdominal techn ique. Findings: The uterus measures 13 x 7 x 6 cm. Single acute or gestational sac with regular appearance. Yolk sac is identified. pole is identi fied with crown-rump length 0.76 cm. Estimated gestational age by ultrasound 6 weeks 5 days. No perig estational fluid collections. heart rate 180 bpm. Estimated date of delivery June 02, 2022. Right ovary measures 3.3 x 1.9 x 1.9 cm. Left ovary measures 4.4 x 2.7 x 2.3 cm. Normal Doppler flow to the ovaries bilaterally. No adnexal masses are seen. IMPRESSION: 1. Single intrauterine with gestational age 6 weeks 5 days and heart rate 180 bpm. Electronically signed by: Moo Torres DO (10/12/2021 8:50 PM) [facility]
== END ==
LOC: US 15:43
PROVIDERS: ATTEND Clinical Nurse Specialist Women's Health
DX: O00.01 Abdominal pregnancy with intrauterine pregnancy (principal); Z3A.01 Less than 8 weeks gestation of pregnancy
CPT/HCPCS: 76801

== ENCOUNTER → 2021-12-20 | Outpatient (CLI) | payer OTHER | LOC: LAB 12:03 | PROVIDERS: ATTEND Obstetrics & Gynecology | DX: Z34.82 Encounter for supervision of other normal pregnancy, second trimester (principal) | CPT/HCPCS: 36415; 81511 ==